=== PATIENT | male | born 1960 | race African-American/Black ===

== ENCOUNTER 2021-08-17 10:14 | Inpatient (IN) ==
[2021-08-17] MEDS ORDERED: LORazepam 1 MG TABLET PO STA (10:59)
[2021-08-17] MEDS ORDERED: ALBUTEROL/IPRATROPIUM 3 ML NEB RESP TX STA (11:00)
[2021-08-17 11:13] LABS: Basophils % 0.1 % (0.0-0.8); Eosinophils % 0.1 % (0.00-10.9); Hematocrit 36.8 VOL% (42.0-52.0); Hemoglobin 11.4 GM/DL (14.0-18.0); Immature Granulocytes % 1.1 %; Immature Granulocytes Absolute 0.17 #; Lymphocytes # 0.6 10*3/uL (1.4-4.0); Lymphocytes % 4.2 % (21.2-54.2); Mean Platelet Volume 9.2 FL (9.6-12.0); Monocytes % 7.4 % (1.7-12.7); Neutrophils % 87.1 % (38.7-73.9); Platelet Count 258 T/CUMM (130-400); Red Blood Count 3.44 MC/CUMM (3.8-5.5); White Blood Count 14.8 T/CUMM (4-12)
[2021-08-17 11:20] LABS: Albumin 3.6 G/DL (3.4-5.0); Calcium 10.3 MG/DL (8.5-10.1); Osmolality,Calculated 289.2 MOS/KG (273-304); Total Protein 8.2 G/DL (6.4-8.2)
[2021-08-17 11:52] LABS: Metamyelocytes 1 %; Segmented Neutrophils 95 % (50-85); Total Cells Counted 100
[2021-08-17] MEDS ORDERED: cefTRIAXone 1,000 MG in SODIUM CHLORIDE 0.9% 100 ML IV STA (12:10)
[2021-08-17] MEDS ORDERED: AZITHROMYCIN 250 MG TABLET PO STA (12:10)
[2021-08-17 15:34] LABS: ABG Base Excess 3.2 MMOL/L (-2.5-2.5); ABG HCO3 29.8 MMOL/L (20-26); ABG Oxygen Saturation 83.2 % (95-100); ABG PCO2 54.7 MM HG (35-48); ABG PH 7.354 (7.35-7.45); ABG PO2 50.1 MM HG (80-95); ABG TCO2 31.5 MMOL/L (23-27)
[2021-08-17] MEDS ORDERED: ALBUTEROL 2.5 MG/3 ML NEB RESP TX PRN (15:44)
[2021-08-17] MEDS ORDERED: ONDANSETRON 4 MG/2 ML VIAL IV PRN (15:46)
[2021-08-17] MEDS: ALBUTEROL/IPRATROPIUM 3 ML NEB RESP TX SCH ×3 (16:30→23:45)
[2021-08-17] MEDS ORDERED: MORPHINE 2 MG/1 ML SYRINGE ONE (16:52)
[2021-08-17] MEDS ORDERED: MORPHINE 2 MG/1 ML SYRINGE IV PRN (16:54)
[2021-08-17] MEDS: methylPREDNISolone SOD SUC 40 MG/1 ML VIAL IV SCH (16:55)
[2021-08-17] MEDS: FAMOTIDINE 20 MG/2 ML VIAL IV SCH (16:55)
[2021-08-17 21:18] LABS: ABG Base Excess 2.8 MMOL/L (-2.5-2.5); ABG Oxygen Saturation 99.1 % (95-100); ABG PCO2 66.7 MM HG (35-48); ABG PH 7.285 (7.35-7.45); ABG PO2 281.4 MM HG (80-95)
[2021-08-17] MEDS: CLORAZEPATE 3.75 MG TABLET PO PRN (21:52)
[2021-08-18] MEDS: methylPREDNISolone SOD SUC 40 MG/1 ML VIAL IV SCH ×3 (01:04→17:15)
[2021-08-18] MEDS ORDERED: LORazepam 2 MG/1 ML VIAL IV ONE (01:23)
[2021-08-18] MEDS: ALBUTEROL/IPRATROPIUM 3 ML NEB RESP TX SCH ×5 (02:25→19:28)
[2021-08-18 04:43] LABS: Basophils % 0.1 % (0.0-0.8); Hematocrit 40.3 VOL% (42.0-52.0); Hemoglobin 12.4 GM/DL (14.0-18.0); Immature Granulocytes Absolute 0.19 #; Lymphocytes # 0.1 10*3/uL (1.4-4.0); Lymphocytes % 0.4 % (21.2-54.2); Mean Corpuscular HGB Conc 30.8 GM/DL (32-36); Mean Platelet Volume 9.2 FL (9.6-12.0); Monocytes % 3.6 % (1.7-12.7); Neutrophils % 94.9 % (38.7-73.9); Platelet Count 245 T/CUMM (130-400); Red Blood Count 3.73 MC/CUMM (3.8-5.5); Red Cell Distribution Width 14.7 % (9.3-17.3); White Blood Count 19.9 T/CUMM (4-12)
[2021-08-18 05:18] LABS: Band Neutrophils 1 % (0-10); Hypochromia 1+; Lymphocytes 1 % (20-55); Segmented Neutrophils 96 % (50-85); Total Cells Counted 100
[2021-08-18 05:19] LABS: Microcytosis 1+; Ovalocytes Slight; Platelet Estimate Normal
[2021-08-18 06:07] LABS: Albumin 3.6 G/DL (3.4-5.0); Bilirubin,Total 1.1 MG/DL (0.20-1.00); Calcium 10.3 MG/DL (8.5-10.1); Osmolality,Calculated 285.4 MOS/KG (273-304); Total Protein 8.2 G/DL (6.4-8.2)
[2021-08-18 06:09] LABS: Potassium 6.2 MMOL/L (3.5-5.1)
[2021-08-18] MEDS ORDERED: FAMOTIDINE 20 MG/2 ML VIAL IV SCH (09:00)
[2021-08-18] MEDS: AZITHROMYCIN INJ 500 MG in SODIUM CHLORIDE 0.9% 250 ML IV SCH (09:40)
[2021-08-18] MEDS: CLORAZEPATE 3.75 MG TABLET PO PRN (09:52)
[2021-08-18 10:06] LABS: Allen Test Positive; Pt O2 Delivery Device BIPAP
[2021-08-18 10:09] LABS: ABG Base Excess 3.6 MMOL/L (-2.5-2.5); ABG HCO3 27.6 MMOL/L (20-26); ABG Oxygen Saturation 97.3 % (95-100); ABG PCO2 65.7 MM HG (35-48); ABG PH 7.298 (7.35-7.45); ABG TCO2 28.9 MMOL/L (23-27)
[2021-08-18] MEDS ORDERED: ROCURONIUM 100 MG/10 ML VIAL IV ONE (10:58)
[2021-08-18] MEDS ORDERED: ETOMIDATE 20 MG/10 ML VIAL IV ONE (10:58)
[2021-08-18 11:43] LABS: ABG Base Excess 2.7 MMOL/L (-2.5-2.5); ABG HCO3 31.1 MMOL/L (20-26); ABG Oxygen Saturation 99.4 % (95-100); ABG PCO2 67.4 MM HG (35-48); ABG PH 7.282 (7.35-7.45); ABG TCO2 33.2 MMOL/L (23-27)
[2021-08-18] MEDS: FERROUS SULFATE 325 MG TABLET PO SCH (13:52)
[2021-08-18] MEDS: METOPROLOL SUCCINATE XL 25 MG TABLET PO SCH (13:52)
[2021-08-18] MEDS: PANTOPRAZOLE 40 MG TABLET PO SCH ×2 (13:52→21:28)
[2021-08-18] MEDS: MONTELUKAST 10 MG TABLET PO SCH ×2 (13:52→21:28)
[2021-08-18] MEDS: FOLIC ACID 1 MG TABLET PO SCH (13:52)
[2021-08-18] MEDS: cefTRIAXone 1,000 MG in SODIUM CHLORIDE 0.9% 100 ML IV SCH (14:00)
[2021-08-18] MEDS ORDERED: FUROSEMIDE 20 MG TABLET PO SCH (15:00)
[2021-08-18] MEDS: MIDAZOLAM 100 MG in SODIUM CHLORIDE 0.9% 80 ML IV PRN (15:00)
[2021-08-18] MEDS ORDERED: MIDAZOLAM 2 MG/2 ML VIAL IV ONE (15:30)
[2021-08-18] MEDS ORDERED: MORPHINE 2 MG/1 ML SYRINGE IV ONE (15:30)
[2021-08-18] MEDS ORDERED: LORazepam 2 MG/1 ML VIAL ONE (16:53)
[2021-08-18] MEDS: DEXMEDETOMIDINE 200 MCG in SODIUM CHLORIDE 0.9% 48 ML IV PRN (17:20)
[2021-08-18] MEDS: FAMOTIDINE 20 MG/2 ML VIAL IV SCH (18:39)
[2021-08-18] MEDS: PHENYLEPHRINE DRIP 40 MG/250 ML PREMIX IV PRN (18:50)
[2021-08-18] MEDS: FUROSEMIDE 40 MG/4 ML VIAL IV SCH (21:28)
[2021-08-18] MEDS: VANCOMYCIN 125 MG CAPSULE PO SCH (21:28)
[2021-08-19] MEDS: ALBUTEROL/IPRATROPIUM 3 ML NEB RESP TX SCH ×7 (00:13→22:45)
[2021-08-19] MEDS: fentaNYL INJ 1,250 MCG in SODIUM CHLORIDE 0.9% 225 ML IV PRN ×5 (00:30→19:55)
[2021-08-19] MEDS: methylPREDNISolone SOD SUC 40 MG/1 ML VIAL IV SCH ×3 (00:43→16:10)
[2021-08-19] MEDS: BUDESONIDE/FORMOTEROL 80-4.5 INHALER 6.9 GM INH SCH ×3 (00:47→22:31)
[2021-08-19 03:05] LABS: Basophils % 0.1 % (0.0-0.8); Hematocrit 32.6 VOL% (42.0-52.0); Hemoglobin 10.2 GM/DL (14.0-18.0); Immature Granulocytes % 0.6 %; Immature Granulocytes Absolute 0.12 #; Lymphocytes # 0.1 10*3/uL (1.4-4.0); Lymphocytes % 0.4 % (21.2-54.2); Mean Corpuscular HGB Conc 31.3 GM/DL (32-36); Mean Corpuscular Volume 106.9 FL (87-102); Mean Platelet Volume 9.1 FL (9.6-12.0); Monocytes % 3.9 % (1.7-12.7); Platelet Count 203 T/CUMM (130-400); Red Blood Count 3.05 MC/CUMM (3.8-5.5); Red Cell Distribution Width 14.8 % (9.3-17.3); White Blood Count 19.8 T/CUMM (4-12)
[2021-08-19] MEDS: PHENYLEPHRINE DRIP 40 MG/250 ML PREMIX IV PRN ×4 (03:15→22:32)
[2021-08-19 03:23] LABS: Albumin 2.6 G/DL (3.4-5.0); Bilirubin,Total 0.8 MG/DL (0.20-1.00); Osmolality,Calculated 297.3 MOS/KG (273-304); Total Protein 6.6 G/DL (6.4-8.2)
[2021-08-19] MEDS: VANCOMYCIN 125 MG CAPSULE PO SCH ×4 (03:30→21:20)
[2021-08-19 03:39] LABS: INR 1.1; PT Patient Result 12.3 SECS (10.5-12.0); Partial Thromboplastin Time 30.5 SECS (23.8-32.1)
[2021-08-19 03:56] LABS: Lymphocytes 1 % (20-55); Platelet Estimate Adequate; Segmented Neutrophils 96 % (50-85); Target Cells 1+; Total Cells Counted 100
[2021-08-19 04:39] LABS: ABG HCO3 31.9 MMOL/L (20-26); ABG Oxygen Saturation 98.6 % (95-100); ABG PH 7.351 (7.35-7.45); ABG PO2 189.3 MM HG (80-95); ABG TCO2 33.7 MMOL/L (23-27)
[2021-08-19] MEDS: MIDAZOLAM 100 MG in SODIUM CHLORIDE 0.9% 80 ML IV PRN ×2 (05:10→20:00)
[2021-08-19] MEDS: FUROSEMIDE 40 MG/4 ML VIAL IV SCH ×3 (08:25→21:26)
[2021-08-19] MEDS: AZITHROMYCIN INJ 500 MG in SODIUM CHLORIDE 0.9% 250 ML IV SCH (08:25)
[2021-08-19] MEDS: FERROUS SULFATE 325 MG TABLET PO SCH (08:45)
[2021-08-19] MEDS: MONTELUKAST 10 MG TABLET PO SCH ×2 (08:45→21:20)
[2021-08-19] MEDS: SIMVASTATIN 10 MG TABLET PO SCH (08:45)
[2021-08-19] MEDS: FOLIC ACID 1 MG TABLET PO SCH (08:45)
[2021-08-19] MEDS: METOPROLOL SUCCINATE XL 25 MG TABLET PO SCH (09:00)
[2021-08-19] MEDS: PANTOPRAZOLE 40 MG TABLET PO SCH ×2 (09:00→21:20)
[2021-08-19 09:44] LABS: % Iron Saturation 15.3 % (18-50)
[2021-08-19] MEDS: cefTRIAXone 1,000 MG in SODIUM CHLORIDE 0.9% 100 ML IV SCH (11:40)
[2021-08-19] MEDS: FERRIC GLUCONATE COMPLEX 125 MG in SODIUM CHLORIDE 0.9% 100 ML IV SCH (12:15)
[2021-08-20] MEDS: methylPREDNISolone SOD SUC 40 MG/1 ML VIAL IV SCH ×3 (00:35→16:10)
[2021-08-20] MEDS: fentaNYL INJ 1,250 MCG in SODIUM CHLORIDE 0.9% 225 ML IV PRN ×4 (01:10→18:30)
[2021-08-20] MEDS: VANCOMYCIN 125 MG CAPSULE PO SCH ×4 (03:25→21:55)
[2021-08-20] MEDS: ALBUTEROL/IPRATROPIUM 3 ML NEB RESP TX SCH ×5 (03:47→18:12)
[2021-08-20 03:50] LABS: ABG Base Excess 5.3 MMOL/L (-2.5-2.5); ABG HCO3 29.2 MMOL/L (20-26); ABG Oxygen Saturation 98.5 % (95-100); ABG PH 7.402 (7.35-7.45); ABG TCO2 28.1 MMOL/L (23-27)
[2021-08-20 04:05] LABS: Hematocrit 32.7 VOL% (42.0-52.0); Lymphocytes # 0.1 10*3/uL (1.4-4.0); Lymphocytes % 0.4 % (21.2-54.2); Mean Corpuscular HGB Conc 30.6 GM/DL (32-36); Mean Corpuscular Volume 106.5 FL (87-102); Mean Platelet Volume 9.3 FL (9.6-12.0); Monocytes % 4.1 % (1.7-12.7); NRBC # 0.09 10*3/uL; Neutrophils % 94.5 % (38.7-73.9); Platelet Count 224 T/CUMM (130-400); Red Blood Count 3.07 MC/CUMM (3.8-5.5); Red Cell Distribution Width 15.1 % (9.3-17.3); White Blood Count 20.7 T/CUMM (4-12)
[2021-08-20 04:21] LABS: Albumin 2.5 G/DL (3.4-5.0); Bilirubin,Total 0.7 MG/DL (0.20-1.00); Calcium 9.6 MG/DL (8.5-10.1); Osmolality,Calculated 297.4 MOS/KG (273-304); Potassium 4.7 MMOL/L (3.5-5.1); Total Protein 6.6 G/DL (6.4-8.2)
[2021-08-20 04:25] LABS: Hypochromia 1+; Lymphocytes 1 % (20-55); Microcytosis 1+; Platelet Estimate Adequate; Segmented Neutrophils 95 % (50-85); Total Cells Counted 100
[2021-08-20] MEDS: PHENYLEPHRINE DRIP 40 MG/250 ML PREMIX IV PRN ×3 (05:56→22:30)
[2021-08-20] MEDS: FUROSEMIDE 40 MG/4 ML VIAL IV SCH ×3 (08:30→21:55)
[2021-08-20] MEDS: cefTRIAXone 1,000 MG in SODIUM CHLORIDE 0.9% 100 ML IV SCH (08:35)
[2021-08-20] MEDS: FERROUS SULFATE 325 MG TABLET PO SCH (08:40)
[2021-08-20] MEDS: FOLIC ACID 1 MG TABLET PO SCH (08:40)
[2021-08-20] MEDS: SIMVASTATIN 10 MG TABLET PO SCH (08:40)
[2021-08-20] MEDS: AZITHROMYCIN INJ 500 MG in SODIUM CHLORIDE 0.9% 250 ML IV SCH (08:45)
[2021-08-20] MEDS: METOPROLOL SUCCINATE XL 25 MG TABLET PO SCH (09:00)
[2021-08-20] MEDS: BUDESONIDE/FORMOTEROL 80-4.5 INHALER 6.9 GM INH SCH ×2 (09:00→21:55)
[2021-08-20] MEDS: PANTOPRAZOLE 40 MG TABLET PO SCH (09:00)
[2021-08-20] MEDS: FERRIC GLUCONATE COMPLEX 125 MG in SODIUM CHLORIDE 0.9% 100 ML IV SCH (09:10)
[2021-08-20] MEDS: PANTOPRAZOLE 40 MG VIAL IV SCH (10:50)
[2021-08-20] MEDS: MONTELUKAST 10 MG TABLET PO SCH ×2 (10:50→21:55)
[2021-08-20] MEDS: MIDAZOLAM 100 MG in SODIUM CHLORIDE 0.9% 80 ML IV PRN (12:05)
[2021-08-21] MEDS: MIDAZOLAM 100 MG in SODIUM CHLORIDE 0.9% 80 ML IV PRN ×2 (00:35→18:30)
[2021-08-21] MEDS: methylPREDNISolone SOD SUC 40 MG/1 ML VIAL IV SCH ×3 (00:42→16:05)
[2021-08-21] MEDS: ALBUTEROL/IPRATROPIUM 3 ML NEB RESP TX SCH ×6 (01:37→18:00)
[2021-08-21] MEDS ORDERED: SODIUM CHLORIDE 0.9% 250 ML IV ONE (02:06)
[2021-08-21] MEDS: fentaNYL INJ 1,250 MCG in SODIUM CHLORIDE 0.9% 225 ML IV PRN ×4 (02:20→18:30)
[2021-08-21] MEDS: VANCOMYCIN 125 MG CAPSULE PO SCH ×4 (02:31→21:50)
[2021-08-21] MEDS: PHENYLEPHRINE DRIP 40 MG/250 ML PREMIX IV PRN ×4 (04:10→19:50)
[2021-08-21 05:32] LABS: Basophils % 0.1 % (0.0-0.8); Hematocrit 34.2 VOL% (42.0-52.0); Hemoglobin 10.7 GM/DL (14.0-18.0); Immature Granulocytes % 1.5 %; Immature Granulocytes Absolute 0.34 #; Mean Corpuscular HGB Conc 31.3 GM/DL (32-36); Mean Corpuscular Volume 105.9 FL (87-102); Mean Platelet Volume 9.6 FL (9.6-12.0); Monocytes % 4.3 % (1.7-12.7); NRBC # 0.18 10*3/uL; Neutrophils % 94.1 % (38.7-73.9); Platelet Count 229 T/CUMM (130-400); Red Blood Count 3.23 MC/CUMM (3.8-5.5); Red Cell Distribution Width 15.4 % (9.3-17.3); White Blood Count 23.3 T/CUMM (4-12)
[2021-08-21 05:49] LABS: Albumin 2.6 G/DL (3.4-5.0); Bilirubin,Total 0.7 MG/DL (0.20-1.00); Calcium 9.6 MG/DL (8.5-10.1); Osmolality,Calculated 301.5 MOS/KG (273-304); Potassium 4.5 MMOL/L (3.5-5.1)
[2021-08-21 05:51] LABS: Hypochromia 1+; Microcytosis 1+; Platelet Estimate Adequate; Segmented Neutrophils 98 % (50-85); Total Cells Counted 100
[2021-08-21 06:29] LABS: ABG Base Excess 3.4 MMOL/L (-2.5-2.5); ABG HCO3 27.4 MMOL/L (20-26); ABG Oxygen Saturation 98.2 % (95-100); ABG PH 7.377 (7.35-7.45); ABG TCO2 26.6 MMOL/L (23-27)
[2021-08-21] MEDS: FERRIC GLUCONATE COMPLEX 125 MG in SODIUM CHLORIDE 0.9% 100 ML IV SCH (08:05)
[2021-08-21] MEDS: PANTOPRAZOLE 40 MG VIAL IV SCH (09:00)
[2021-08-21] MEDS: AZITHROMYCIN INJ 500 MG in SODIUM CHLORIDE 0.9% 250 ML IV SCH (09:00)
[2021-08-21] MEDS: FUROSEMIDE 40 MG/4 ML VIAL IV SCH (09:00)
[2021-08-21] MEDS: BUDESONIDE/FORMOTEROL 80-4.5 INHALER 6.9 GM INH SCH ×2 (09:00→21:50)
[2021-08-21] MEDS: SIMVASTATIN 10 MG TABLET PO SCH (09:05)
[2021-08-21] MEDS: FOLIC ACID 1 MG TABLET PO SCH (09:05)
[2021-08-21] MEDS: FERROUS SULFATE 325 MG TABLET PO SCH (09:05)
[2021-08-21] MEDS: MONTELUKAST 10 MG TABLET PO SCH ×2 (09:05→21:50)
[2021-08-21] MEDS: cefTRIAXone 1,000 MG in SODIUM CHLORIDE 0.9% 100 ML IV SCH (09:30)
[2021-08-22] MEDS: methylPREDNISolone SOD SUC 40 MG/1 ML VIAL IV SCH ×3 (00:02→15:56)
[2021-08-22] MEDS: ALBUTEROL/IPRATROPIUM 3 ML NEB RESP TX SCH ×7 (00:17→23:09)
[2021-08-22] MEDS: PHENYLEPHRINE DRIP 40 MG/250 ML PREMIX IV PRN ×3 (00:56→11:36)
[2021-08-22] MEDS: fentaNYL INJ 1,250 MCG in SODIUM CHLORIDE 0.9% 225 ML IV PRN ×3 (01:07→17:28)
[2021-08-22] MEDS: VANCOMYCIN 125 MG CAPSULE PO SCH ×4 (03:56→21:00)
[2021-08-22 05:21] LABS: Basophils % 0.1 % (0.0-0.8); Hematocrit 36.1 VOL% (42.0-52.0); Immature Granulocytes % 1.1 %; Immature Granulocytes Absolute 0.24 #; Lymphocytes # 0.1 10*3/uL (1.4-4.0); Lymphocytes % 0.2 % (21.2-54.2); Mean Corpuscular HGB Conc 30.5 GM/DL (32-36); Mean Corpuscular Volume 108.1 FL (87-102); Mean Platelet Volume 9.7 FL (9.6-12.0); Monocytes % 5.7 % (1.7-12.7); NRBC # 0.09 10*3/uL; Neutrophils % 92.9 % (38.7-73.9); Platelet Count 209 T/CUMM (130-400); Red Blood Count 3.34 MC/CUMM (3.8-5.5); Red Cell Distribution Width 15.4 % (9.3-17.3); White Blood Count 22.6 T/CUMM (4-12)
[2021-08-22 05:34] LABS: ABG Base Excess 0.8 MMOL/L (-2.5-2.5); ABG HCO3 27.9 MMOL/L (20-26); ABG Oxygen Saturation 97.7 % (95-100); ABG PCO2 57.7 MM HG (35-48); ABG PH 7.302 (7.35-7.45); ABG PO2 118.2 MM HG (80-95); ABG TCO2 29.7 MMOL/L (23-27)
[2021-08-22 05:47] LABS: Hypochromia Slight; Lymphocytes 1 % (20-55); Microcytosis Slight; Nucleated Red Blood Cells 1 (0-5); Platelet Estimate Adequate; Segmented Neutrophils 98 % (50-85); Total Cells Counted 100
[2021-08-22 06:42] LABS: Albumin 2.7 G/DL (3.4-5.0); Bilirubin,Total 0.6 MG/DL (0.20-1.00); Osmolality,Calculated 307.4 MOS/KG (273-304); Potassium 5.2 MMOL/L (3.5-5.1)
[2021-08-22 07:56] LABS: M. Tuberculosis PCR Result Negative (Negative); M. Tuberculosis PCR Source BRONCH WASH
[2021-08-22] MEDS: SIMVASTATIN 10 MG TABLET PO SCH (08:57)
[2021-08-22] MEDS: PANTOPRAZOLE 40 MG VIAL IV SCH (08:57)
[2021-08-22] MEDS: FERROUS SULFATE 325 MG TABLET PO SCH (08:57)
[2021-08-22] MEDS: FOLIC ACID 1 MG TABLET PO SCH (08:57)
[2021-08-22] MEDS: MONTELUKAST 10 MG TABLET PO SCH ×2 (08:57→21:00)
[2021-08-22] MEDS: BUDESONIDE/FORMOTEROL 80-4.5 INHALER 6.9 GM INH SCH ×2 (08:58→21:00)
[2021-08-22] MEDS: FERRIC GLUCONATE COMPLEX 125 MG in SODIUM CHLORIDE 0.9% 100 ML IV SCH (08:58)
[2021-08-22] MEDS: AZITHROMYCIN INJ 500 MG in SODIUM CHLORIDE 0.9% 250 ML IV SCH (08:59)
[2021-08-22] MEDS: cefTRIAXone 1,000 MG in SODIUM CHLORIDE 0.9% 100 ML IV SCH (09:01)
[2021-08-22] MEDS ORDERED: SODIUM POLYSTYRENE SULFATE 15 GM/60 ML BOTTLE PO ONE (10:25)
[2021-08-22] MEDS ORDERED: SODIUM CHLORIDE 0.9% 500 ML IV ONE (11:37)
[2021-08-22] MEDS: MIDAZOLAM 100 MG in SODIUM CHLORIDE 0.9% 80 ML IV PRN (16:08)
[2021-08-22] MEDS: HEPARIN 5,000 UNIT/1 ML VIAL SUBCUT SCH (17:55)
[2021-08-22 19:56] LABS: Calcium 9.5 MG/DL (8.5-10.1); Osmolality,Calculated 305.5 MOS/KG (273-304); Potassium 5.4 MMOL/L (3.5-5.1)
[2021-08-23] MEDS: methylPREDNISolone SOD SUC 40 MG/1 ML VIAL IV SCH ×3 (00:50→16:14)
[2021-08-23] MEDS: fentaNYL INJ 1,250 MCG in SODIUM CHLORIDE 0.9% 225 ML IV PRN ×4 (02:26→19:34)
[2021-08-23] MEDS: VANCOMYCIN 125 MG CAPSULE PO SCH ×4 (02:52→21:55)
[2021-08-23] MEDS: ALBUTEROL/IPRATROPIUM 3 ML NEB RESP TX SCH ×6 (03:15→23:20)
[2021-08-23 03:52] LABS: ABG Base Excess -0.1 MMOL/L (-2.5-2.5); ABG PCO2 56.6 MM HG (35-48); ABG PH 7.297 (7.35-7.45); ABG PO2 125.5 MM HG (80-95); ABG TCO2 28.8 MMOL/L (23-27)
[2021-08-23 03:53] LABS: Allen Test Positive; Pt O2 Delivery Device Ventilator
[2021-08-23 05:50] LABS: Basophils % 0.1 % (0.0-0.8); Eosinophils # 0.1 10*3/uL (0.0-0.87); Eosinophils % 0.2 % (0.00-10.9); Hematocrit 34.1 VOL% (42.0-52.0); Hemoglobin 10.6 GM/DL (14.0-18.0); Immature Granulocytes % 1.2 %; Immature Granulocytes Absolute 0.26 #; Lymphocytes # 0.1 10*3/uL (1.4-4.0); Lymphocytes % 0.4 % (21.2-54.2); Mean Corpuscular HGB Conc 31.1 GM/DL (32-36); Mean Corpuscular Volume 108.3 FL (87-102); Mean Platelet Volume 11.1 FL (9.6-12.0); Monocytes % 4.5 % (1.7-12.7); NRBC # 0.08 10*3/uL; Neutrophils % 93.6 % (38.7-73.9); Red Blood Count 3.15 MC/CUMM (3.8-5.5); Red Cell Distribution Width 15.4 % (9.3-17.3); White Blood Count 21.5 T/CUMM (4-12)
[2021-08-23 05:51] LABS: Calcium 9.5 MG/DL (8.5-10.1); Osmolality,Calculated 312.1 MOS/KG (273-304); Potassium 5.2 MMOL/L (3.5-5.1)
[2021-08-23 05:58] LABS: Platelet Count 111 T/CUMM (130-400)
[2021-08-23] MEDS: HEPARIN 5,000 UNIT/1 ML VIAL SUBCUT SCH ×2 (06:17→18:29)
[2021-08-23 06:19] LABS: Nucleated Red Blood Cells 1 (0-5); Segmented Neutrophils 92 % (50-85); Total Cells Counted 100
[2021-08-23] MEDS ORDERED: SODIUM POLYSTYRENE SULFATE 15 GM/60 ML BOTTLE PO ONE (07:57)
[2021-08-23] MEDS: MIDAZOLAM 100 MG in SODIUM CHLORIDE 0.9% 80 ML IV PRN (09:32)
[2021-08-23] MEDS: BUDESONIDE/FORMOTEROL 80-4.5 INHALER 6.9 GM INH SCH ×2 (09:38→21:55)
[2021-08-23] MEDS: AZITHROMYCIN INJ 500 MG in SODIUM CHLORIDE 0.9% 250 ML IV SCH (09:38)
[2021-08-23] MEDS: MONTELUKAST 10 MG TABLET PO SCH ×2 (09:38→21:55)
[2021-08-23] MEDS: PANTOPRAZOLE 40 MG VIAL IV SCH (09:38)
[2021-08-23] MEDS: FOLIC ACID 1 MG TABLET PO SCH (09:38)
[2021-08-23] MEDS: FERROUS SULFATE 325 MG TABLET PO SCH (09:38)
[2021-08-23] MEDS: SIMVASTATIN 10 MG TABLET PO SCH (09:39)
[2021-08-23] MEDS: cefTRIAXone 1,000 MG in SODIUM CHLORIDE 0.9% 100 ML IV SCH (11:20)
[2021-08-23] MEDS: FERRIC GLUCONATE COMPLEX 125 MG in SODIUM CHLORIDE 0.9% 100 ML IV SCH (11:46)
[2021-08-23 13:17] LABS: Basophils % 0.1 % (0.0-0.8); Hematocrit 33.1 VOL% (42.0-52.0); Hemoglobin 10.2 GM/DL (14.0-18.0); Immature Granulocytes % 0.9 %; Immature Granulocytes Absolute 0.18 #; Mean Corpuscular HGB Conc 30.8 GM/DL (32-36); Monocytes % 5.6 % (1.7-12.7); Neutrophils % 93.4 % (38.7-73.9); Platelet Count 151 T/CUMM (130-400); Red Blood Count 3.01 MC/CUMM (3.8-5.5); Red Cell Distribution Width 15.2 % (9.3-17.3); White Blood Count 20.9 T/CUMM (4-12)
[2021-08-23] MEDS: DEXMEDETOMIDINE 200 MCG in SODIUM CHLORIDE 0.9% 48 ML IV PRN ×3 (13:18→22:14)
[2021-08-23] MEDS ORDERED: SODIUM CHLORIDE 0.9% 1,000 ML IV ONE (13:22)
[2021-08-23 13:49] LABS: Platelet Estimate Adequate
[2021-08-23] MEDS: PHENYLEPHRINE DRIP 40 MG/250 ML PREMIX IV PRN (17:47)
[2021-08-24] MEDS: methylPREDNISolone SOD SUC 40 MG/1 ML VIAL IV SCH ×3 (00:38→16:05)
[2021-08-24] MEDS: fentaNYL INJ 1,250 MCG in SODIUM CHLORIDE 0.9% 225 ML IV PRN ×4 (00:42→20:46)
[2021-08-24] MEDS: DEXMEDETOMIDINE 200 MCG in SODIUM CHLORIDE 0.9% 48 ML IV PRN (00:44)
[2021-08-24] MEDS: ALBUTEROL/IPRATROPIUM 3 ML NEB RESP TX SCH ×6 (03:13→23:35)
[2021-08-24] MEDS ORDERED: DEXMEDETOMIDINE 400 MCG in SODIUM CHLORIDE 0.9% 96 ML IV PRN (04:00)
[2021-08-24] MEDS ORDERED: DEXMEDETOMIDINE 200 MCG in SODIUM CHLORIDE 0.9% 48 ML IV PRN (04:00)
[2021-08-24 04:16] LABS: ABG Base Excess 0.2 MMOL/L (-2.5-2.5); ABG HCO3 24.2 MMOL/L (20-26); ABG Oxygen Saturation 98.2 % (95-100); ABG PCO2 37.1 MM HG (35-48); ABG PH 7.433 (7.35-7.45); ABG PO2 130.4 MM HG (80-95); ABG TCO2 25.4 MMOL/L (23-27); Allen Test Positive; Pt O2 Delivery Device Ventilator
[2021-08-24 05:24] LABS: Basophils % 0.1 % (0.0-0.8); Hematocrit 35.4 VOL% (42.0-52.0); Hemoglobin 11.1 GM/DL (14.0-18.0); Immature Granulocytes Absolute 0.19 #; Lymphocytes # 0.1 10*3/uL (1.4-4.0); Lymphocytes % 0.3 % (21.2-54.2); Mean Corpuscular HGB Conc 31.4 GM/DL (32-36); Mean Corpuscular Volume 105.7 FL (87-102); Mean Platelet Volume 10.2 FL (9.6-12.0); Monocytes % 3.4 % (1.7-12.7); NRBC # 0.08 10*3/uL; Neutrophils % 95.2 % (38.7-73.9); Platelet Count 142 T/CUMM (130-400); Red Blood Count 3.35 MC/CUMM (3.8-5.5); White Blood Count 18.7 T/CUMM (4-12)
[2021-08-24 05:36] LABS: INR 1.1; PT Patient Result 12.2 SECS (10.5-12.0); Partial Thromboplastin Time 31.4 SECS (23.8-32.1)
[2021-08-24] MEDS: HEPARIN 5,000 UNIT/1 ML VIAL SUBCUT SCH ×2 (05:47→16:05)
[2021-08-24 05:49] LABS: Hypochromia 1+; Lymphocytes 1 % (20-55); Myelocytes 1 %; Segmented Neutrophils 95 % (50-85); Total Cells Counted 100
[2021-08-24 05:50] LABS: Microcytosis Slight; Ovalocytes Slight; Platelet Estimate Adequate; Target Cells Slight
[2021-08-24 06:00] LABS: Calcium 9.7 MG/DL (8.5-10.1); Osmolality,Calculated 318.8 MOS/KG (273-304); Potassium 4.5 MMOL/L (3.5-5.1)
[2021-08-24] MEDS: PANTOPRAZOLE 40 MG VIAL IV SCH (08:30)
[2021-08-24] MEDS: AZITHROMYCIN INJ 500 MG in SODIUM CHLORIDE 0.9% 250 ML IV SCH (08:30)
[2021-08-24] MEDS: FERRIC GLUCONATE COMPLEX 125 MG in SODIUM CHLORIDE 0.9% 100 ML IV SCH (08:35)
[2021-08-24] MEDS: BUDESONIDE/FORMOTEROL 80-4.5 INHALER 6.9 GM INH SCH ×2 (09:00→20:45)
[2021-08-24] MEDS: MONTELUKAST 10 MG TABLET PO SCH ×2 (09:05→20:49)
[2021-08-24] MEDS: FERROUS SULFATE 325 MG TABLET PO SCH (09:05)
[2021-08-24] MEDS: FOLIC ACID 1 MG TABLET PO SCH (09:05)
[2021-08-24] MEDS: SIMVASTATIN 10 MG TABLET PO SCH (09:05)
[2021-08-24] MEDS: cefTRIAXone 1,000 MG in SODIUM CHLORIDE 0.9% 100 ML IV SCH (10:35)
[2021-08-24] MEDS ORDERED: ETOMIDATE 20 MG/10 ML VIAL IV ONE ×2 (13:28→13:41)
[2021-08-24] MEDS ORDERED: SUCCINYLCHOLINE 200 MG/10 ML VIAL ONE (13:29)
[2021-08-24] MEDS ORDERED: SUCCINYLCHOLINE 200 MG/10 ML VIAL IV ONE (13:41)
[2021-08-24 16:09] LABS: ABG Base Excess -2.5 MMOL/L (-2.5-2.5); ABG HCO3 24.6 MMOL/L (20-26); ABG Oxygen Saturation 96.4 % (95-100); ABG PCO2 53.2 MM HG (35-48); ABG PH 7.283 (7.35-7.45); ABG PO2 100.4 MM HG (80-95); ABG TCO2 26.2 MMOL/L (23-27)
[2021-08-24 18:21] LABS: ABG Base Excess -2.2 MMOL/L (-2.5-2.5); ABG HCO3 22.6 MMOL/L (20-26); ABG Oxygen Saturation 97.2 % (95-100); ABG PCO2 52.7 MM HG (35-48); ABG PH 7.286 (7.35-7.45); ABG TCO2 22.9 MMOL/L (23-27); Allen Test Positive; Pt O2 Delivery Device Ventilator
[2021-08-25] MEDS: methylPREDNISolone SOD SUC 40 MG/1 ML VIAL IV SCH ×3 (00:05→16:30)
[2021-08-25] MEDS: fentaNYL INJ 1,250 MCG in SODIUM CHLORIDE 0.9% 225 ML IV PRN ×4 (02:07→19:00)
[2021-08-25] MEDS: ALBUTEROL/IPRATROPIUM 3 ML NEB RESP TX SCH ×6 (03:30→23:50)
[2021-08-25 04:18] LABS: ABG Base Excess 0.2 MMOL/L (-2.5-2.5); ABG HCO3 24.6 MMOL/L (20-26); ABG Oxygen Saturation 98.5 % (95-100); ABG PH 7.352 (7.35-7.45); ABG TCO2 23.8 MMOL/L (23-27); Allen Test Positive; Pt O2 Delivery Device Ventilator
[2021-08-25 04:41] LABS: Basophils % 0.1 % (0.0-0.8); Immature Granulocytes % 1.4 %; Immature Granulocytes Absolute 0.29 #; Lymphocytes % 0.1 % (21.2-54.2); Mean Corpuscular HGB Conc 30.3 GM/DL (32-36); Mean Corpuscular Volume 106.8 FL (87-102); Mean Platelet Volume 10.4 FL (9.6-12.0); NRBC # 0.07 10*3/uL; Neutrophils % 94.4 % (38.7-73.9); Platelet Count 145 T/CUMM (130-400); Red Blood Count 3.09 MC/CUMM (3.8-5.5); Red Cell Distribution Width 15.2 % (9.3-17.3); White Blood Count 20.3 T/CUMM (4-12)
[2021-08-25 05:00] LABS: Albumin 2.2 G/DL (3.4-5.0); Bilirubin,Total 0.6 MG/DL (0.20-1.00); Calcium 9.5 MG/DL (8.5-10.1); Osmolality,Calculated 318.1 MOS/KG (273-304); Potassium 4.5 MMOL/L (3.5-5.1); Total Protein 6.1 G/DL (6.4-8.2)
[2021-08-25 05:06] LABS: Lymphocytes 1 % (20-55); Segmented Neutrophils 97 % (50-85); Total Cells Counted 100
[2021-08-25 05:07] LABS: Elliptocytes 1+; Platelet Estimate Adequate; Target Cells 1+
[2021-08-25 05:14] LABS: Ferritin 2247.7 ng/mL (26-388)
[2021-08-25] MEDS: HEPARIN 5,000 UNIT/1 ML VIAL SUBCUT SCH ×2 (05:14→16:31)
[2021-08-25] MEDS: MONTELUKAST 10 MG TABLET PO SCH ×2 (08:22→21:04)
[2021-08-25] MEDS: PANTOPRAZOLE 40 MG VIAL IV SCH (08:22)
[2021-08-25] MEDS: FERROUS SULFATE 325 MG TABLET PO SCH (08:22)
[2021-08-25] MEDS: FOLIC ACID 1 MG TABLET PO SCH (08:23)
[2021-08-25] MEDS: SIMVASTATIN 10 MG TABLET PO SCH (08:23)
[2021-08-25] MEDS: AZITHROMYCIN INJ 500 MG in SODIUM CHLORIDE 0.9% 250 ML IV SCH (08:23)
[2021-08-25] MEDS: FERRIC GLUCONATE COMPLEX 125 MG in SODIUM CHLORIDE 0.9% 100 ML IV SCH (09:00)
[2021-08-25] MEDS: BUDESONIDE/FORMOTEROL 80-4.5 INHALER 6.9 GM INH SCH ×2 (09:04→21:05)
[2021-08-25] MEDS: cefTRIAXone 1,000 MG in SODIUM CHLORIDE 0.9% 100 ML IV SCH (10:04)
[2021-08-25] MEDS: MIDAZOLAM 100 MG in SODIUM CHLORIDE 0.9% 80 ML IV PRN (11:50)
[2021-08-25] MEDS: VANCOMYCIN INJ 1,500 MG in SODIUM CHLORIDE 0.9% 500 ML IV SCH (12:05)
[2021-08-25] MEDS: PHENYLEPHRINE DRIP 40 MG/250 ML PREMIX IV PRN (12:40)
[2021-08-25 15:06] LABS: M. Tuberculosis PCR Result Negative (Negative); M. Tuberculosis PCR Source BRONCH WASH
[2021-08-25] MEDS: QUEtiapine 25 MG TABLET PO SCH (21:05)
[2021-08-26] MEDS: methylPREDNISolone SOD SUC 40 MG/1 ML VIAL IV SCH ×3 (00:11→15:55)
[2021-08-26] MEDS: PHENYLEPHRINE DRIP 40 MG/250 ML PREMIX IV PRN (02:43)
[2021-08-26] MEDS: fentaNYL INJ 1,250 MCG in SODIUM CHLORIDE 0.9% 225 ML IV PRN ×4 (02:45→23:34)
[2021-08-26] MEDS: ALBUTEROL/IPRATROPIUM 3 ML NEB RESP TX SCH ×5 (03:00→20:38)
[2021-08-26 04:55] LABS: Basophils % 0.1 % (0.0-0.8); Hemoglobin 9.7 GM/DL (14.0-18.0); Immature Granulocytes % 2.2 %; Immature Granulocytes Absolute 0.57 #; Lymphocytes # 0.1 10*3/uL (1.4-4.0); Lymphocytes % 0.5 % (21.2-54.2); Mean Corpuscular HGB Conc 31.3 GM/DL (32-36); Mean Corpuscular Volume 106.2 FL (87-102); Mean Platelet Volume 10.9 FL (9.6-12.0); Monocytes % 3.2 % (1.7-12.7); NRBC # 0.13 10*3/uL; Platelet Count 179 T/CUMM (130-400); Red Blood Count 2.92 MC/CUMM (3.8-5.5); Red Cell Distribution Width 15.6 % (9.3-17.3); White Blood Count 26.2 T/CUMM (4-12)
[2021-08-26 05:12] LABS: Albumin 2.1 G/DL (3.4-5.0); Bilirubin,Total 0.5 MG/DL (0.20-1.00); Calcium 9.3 MG/DL (8.5-10.1); Osmolality,Calculated 329.3 MOS/KG (273-304); Potassium 4.7 MMOL/L (3.5-5.1); Total Protein 6.2 G/DL (6.4-8.2)
[2021-08-26] MEDS: HEPARIN 5,000 UNIT/1 ML VIAL SUBCUT SCH ×2 (05:17→16:11)
[2021-08-26 05:22] LABS: ABG Base Excess 1.1 MMOL/L (-2.5-2.5); ABG HCO3 25.4 MMOL/L (20-26); ABG Oxygen Saturation 98.4 % (95-100); ABG PCO2 47.6 MM HG (35-48); ABG PH 7.361 (7.35-7.45); ABG TCO2 24.6 MMOL/L (23-27)
[2021-08-26 05:25] LABS: Band Neutrophils 4 % (0-10); Hypochromia 1+; Lymphocytes 1 % (20-55); Segmented Neutrophils 92 % (50-85); Total Cells Counted 100
[2021-08-26 05:26] LABS: Anisocytosis 1+; Microcytosis 1+; Ovalocytes Slight; Target Cells Slight
[2021-08-26] MEDS: FERRIC GLUCONATE COMPLEX 125 MG in SODIUM CHLORIDE 0.9% 100 ML IV SCH (08:26)
[2021-08-26] MEDS: PANTOPRAZOLE 40 MG VIAL IV SCH (08:49)
[2021-08-26] MEDS: SIMVASTATIN 10 MG TABLET PO SCH (08:50)
[2021-08-26] MEDS: FERROUS SULFATE 325 MG TABLET PO SCH (08:50)
[2021-08-26] MEDS: FOLIC ACID 1 MG TABLET PO SCH (08:50)
[2021-08-26] MEDS: MONTELUKAST 10 MG TABLET PO SCH ×2 (08:50→21:15)
[2021-08-26] MEDS: BUDESONIDE/FORMOTEROL 80-4.5 INHALER 6.9 GM INH SCH ×2 (09:08→21:15)
[2021-08-26] MEDS: cefTRIAXone 1,000 MG in SODIUM CHLORIDE 0.9% 100 ML IV SCH (09:23)
[2021-08-26] MEDS: VANCOMYCIN INJ 1,500 MG in SODIUM CHLORIDE 0.9% 500 ML IV SCH (09:24)
[2021-08-26] MEDS: MIDAZOLAM 100 MG in SODIUM CHLORIDE 0.9% 80 ML IV PRN (10:12)
[2021-08-26] MEDS ORDERED: GLUCAGON 1 MG VIAL IM PRN (18:05)
[2021-08-26] MEDS ORDERED: DEXTROSE 10% 25 GM/250 ML BAG IV PRN (18:16)
[2021-08-26] MEDS: INSULIN LISPRO 100 UNIT/ML SUBCUT SCH (18:34)
[2021-08-26] MEDS: QUEtiapine 25 MG TABLET PO SCH (21:15)
[2021-08-27] MEDS ORDERED: INSULIN LISPRO 100 UNIT/ML SUBCUT SCH
[2021-08-27] MEDS: methylPREDNISolone SOD SUC 40 MG/1 ML VIAL IV SCH ×3 (00:29→17:28)
[2021-08-27] MEDS: INSULIN LISPRO 100 UNIT/ML SUBCUT SCH ×4 (00:30→17:28)
[2021-08-27] MEDS: ALBUTEROL/IPRATROPIUM 3 ML NEB RESP TX SCH ×7 (00:35→23:42)
[2021-08-27] MEDS: fentaNYL INJ 1,250 MCG in SODIUM CHLORIDE 0.9% 225 ML IV PRN ×3 (03:06→21:57)
[2021-08-27 03:58] LABS: ABG Base Excess 0.6 MMOL/L (-2.5-2.5); ABG Oxygen Saturation 98.5 % (95-100); ABG PCO2 50.8 MM HG (35-48); ABG PH 7.334 (7.35-7.45)
[2021-08-27 04:35] LABS: Basophils % 0.2 % (0.0-0.8); Hemoglobin 9.3 GM/DL (14.0-18.0); Immature Granulocytes % 1.8 %; Immature Granulocytes Absolute 0.47 #; Lymphocytes # 0.1 10*3/uL (1.4-4.0); Lymphocytes % 0.5 % (21.2-54.2); Mean Corpuscular Volume 109.5 FL (87-102); Mean Platelet Volume 11.4 FL (9.6-12.0); Monocytes % 3.3 % (1.7-12.7); NRBC # 0.09 10*3/uL; Neutrophils % 94.2 % (38.7-73.9); Platelet Count 157 T/CUMM (130-400); Red Blood Count 2.74 MC/CUMM (3.8-5.5); Red Cell Distribution Width 15.6 % (9.3-17.3); White Blood Count 26.6 T/CUMM (4-12)
[2021-08-27] MEDS: MIDAZOLAM 100 MG in SODIUM CHLORIDE 0.9% 80 ML IV PRN (04:38)
[2021-08-27 04:58] LABS: Band Neutrophils 2 % (0-10); Calcium 10.1 MG/DL (8.5-10.1); Lymphocytes 1 % (20-55); Osmolality,Calculated 332.4 MOS/KG (273-304); Platelet Estimate Normal; Potassium 5.1 MMOL/L (3.5-5.1); Segmented Neutrophils 96 % (50-85); Total Cells Counted 100
[2021-08-27 04:59] LABS: Hypochromia Slight
[2021-08-27] MEDS: HEPARIN 5,000 UNIT/1 ML VIAL SUBCUT SCH ×2 (05:59→17:28)
[2021-08-27] MEDS: PANTOPRAZOLE 40 MG VIAL IV SCH (08:39)
[2021-08-27] MEDS: FOLIC ACID 1 MG TABLET PO SCH (08:40)
[2021-08-27] MEDS: MONTELUKAST 10 MG TABLET PO SCH ×2 (08:40→20:30)
[2021-08-27] MEDS: FERRIC GLUCONATE COMPLEX 125 MG in SODIUM CHLORIDE 0.9% 100 ML IV SCH (08:40)
[2021-08-27] MEDS: FERROUS SULFATE 325 MG TABLET PO SCH (08:40)
[2021-08-27] MEDS: SIMVASTATIN 10 MG TABLET PO SCH (08:40)
[2021-08-27] MEDS: BUDESONIDE/FORMOTEROL 80-4.5 INHALER 6.9 GM INH SCH ×2 (08:56→20:30)
[2021-08-27] MEDS: cefTRIAXone 1,000 MG in SODIUM CHLORIDE 0.9% 100 ML IV SCH (09:02)
[2021-08-27] MEDS: VANCOMYCIN INJ 1,500 MG in SODIUM CHLORIDE 0.9% 500 ML IV SCH (09:43)
[2021-08-27] MEDS: QUEtiapine 25 MG TABLET PO SCH ×2 (10:28→20:30)
[2021-08-27] MEDS ORDERED: ACETYLCYSTEINE 20% 800 MG/4 ML VIAL RESP TX SCH (15:00)
[2021-08-27] MEDS: DORNASE ALFA 2.5 MG/2.5 ML VIAL RESP TX SCH (20:21)
[2021-08-28] MEDS: methylPREDNISolone SOD SUC 40 MG/1 ML VIAL IV SCH ×3 (00:50→16:23)
[2021-08-28] MEDS: INSULIN LISPRO 100 UNIT/ML SUBCUT SCH ×4 (00:50→18:01)
[2021-08-28] MEDS: ALBUTEROL/IPRATROPIUM 3 ML NEB RESP TX SCH ×5 (03:30→20:00)
[2021-08-28 03:48] LABS: ABG Base Excess -0.3 MMOL/L (-2.5-2.5); ABG HCO3 24.2 MMOL/L (20-26); ABG Oxygen Saturation 97.2 % (95-100); ABG PCO2 53.8 MM HG (35-48); ABG PH 7.306 (7.35-7.45); ABG TCO2 24.6 MMOL/L (23-27)
[2021-08-28] MEDS: MIDAZOLAM 100 MG in SODIUM CHLORIDE 0.9% 80 ML IV PRN ×2 (03:52→22:38)
[2021-08-28 03:58] LABS: Basophils # 0.1 10*3/uL (0.0-0.2); Basophils % 0.1 % (0.0-0.8); Hematocrit 33.9 VOL% (42.0-52.0); Hemoglobin 10.1 GM/DL (14.0-18.0); Immature Granulocytes % 1.7 %; Immature Granulocytes Absolute 0.57 #; Lymphocytes # 0.1 10*3/uL (1.4-4.0); Lymphocytes % 0.4 % (21.2-54.2); Mean Corpuscular HGB Conc 29.8 GM/DL (32-36); Mean Corpuscular Volume 109.7 FL (87-102); Mean Platelet Volume 10.9 FL (9.6-12.0); Monocytes % 2.8 % (1.7-12.7); NRBC # 0.08 10*3/uL; Platelet Count 165 T/CUMM (130-400); Red Blood Count 3.09 MC/CUMM (3.8-5.5); Red Cell Distribution Width 15.9 % (9.3-17.3); White Blood Count 33.5 T/CUMM (4-12)
[2021-08-28 05:04] LABS: Band Neutrophils 3 % (0-10); Lymphocytes 1 % (20-55); Nucleated Red Blood Cells 1 (0-5); Segmented Neutrophils 95 % (50-85); Total Cells Counted 100
[2021-08-28 05:05] LABS: Hypochromia Slight; Microcytosis 1+; Ovalocytes Slight; Platelet Estimate Adequate
[2021-08-28] MEDS: HEPARIN 5,000 UNIT/1 ML VIAL SUBCUT SCH ×2 (05:56→16:23)
[2021-08-28] MEDS: DORNASE ALFA 2.5 MG/2.5 ML VIAL RESP TX SCH ×2 (07:20→20:05)
[2021-08-28 07:47] LABS: Albumin 2.4 G/DL (3.4-5.0); Bilirubin,Total 0.5 MG/DL (0.20-1.00); Calcium 10.2 MG/DL (8.5-10.1); Osmolality,Calculated 336.1 MOS/KG (273-304); Total Protein 6.6 G/DL (6.4-8.2)
[2021-08-28] MEDS: QUEtiapine 25 MG TABLET PO SCH ×2 (08:19→20:44)
[2021-08-28] MEDS: FERROUS SULFATE 325 MG TABLET PO SCH (08:19)
[2021-08-28] MEDS: PANTOPRAZOLE 40 MG VIAL IV SCH (08:19)
[2021-08-28] MEDS: FOLIC ACID 1 MG TABLET PO SCH (08:19)
[2021-08-28] MEDS: SIMVASTATIN 10 MG TABLET PO SCH (08:19)
[2021-08-28] MEDS: MONTELUKAST 10 MG TABLET PO SCH ×2 (08:20→20:45)
[2021-08-28] MEDS: cefTRIAXone 1,000 MG in SODIUM CHLORIDE 0.9% 100 ML IV SCH (09:05)
[2021-08-28] MEDS: BUDESONIDE/FORMOTEROL 80-4.5 INHALER 6.9 GM INH SCH ×2 (09:05→20:45)
[2021-08-28] MEDS ORDERED: FUROSEMIDE 40 MG/4 ML VIAL IV ONE (09:39)
[2021-08-28] MEDS: VANCOMYCIN INJ 1,500 MG in SODIUM CHLORIDE 0.9% 500 ML IV SCH (10:41)
[2021-08-28] MEDS: MEROPENEM 500 MG in SODIUM CHLORIDE 0.9% 100 ML IV SCH ×2 (10:46→19:51)
[2021-08-28] MEDS: INSULIN GLARGINE 100 UNIT/ML SUBCUT SCH (11:35)
[2021-08-28 11:42] LABS: Bilirubin,Urine Negative (Negative); Blood, Urine Moderate mg/dL (Negative); Glucose,Urine (UA) Negative (Negative); Ketones,Urine Negative (Negative); Mucus,Urine Occasional /LPF (Occasional); Nitrite,Urine Negative (Negative); Protein,Urine Negative; RBC,Urine 72 /HPF (0-4); Urine Appearance CLOUDY (Clear); Urine Color Yellow (Yellow); Urine Specific Gravity 1.008 (1.001-1.035); Urine Urobilinogen < 2.0 EU/DL (<2.0)
[2021-08-28] MEDS: fentaNYL INJ 1,250 MCG in SODIUM CHLORIDE 0.9% 225 ML IV PRN (19:00)
[2021-08-29] MEDS: ALBUTEROL/IPRATROPIUM 3 ML NEB RESP TX SCH ×7 (00:19→23:06)
[2021-08-29] MEDS: INSULIN LISPRO 100 UNIT/ML SUBCUT SCH ×4 (00:37→17:49)
[2021-08-29] MEDS: methylPREDNISolone SOD SUC 40 MG/1 ML VIAL IV SCH ×3 (00:38→17:27)
[2021-08-29 03:47] LABS: Basophils % 0.1 % (0.0-0.8); Hematocrit 31.8 VOL% (42.0-52.0); Hemoglobin 9.6 GM/DL (14.0-18.0); Immature Granulocytes % 2.8 %; Immature Granulocytes Absolute 0.99 #; Lymphocytes # 0.1 10*3/uL (1.4-4.0); Lymphocytes % 0.2 % (21.2-54.2); Mean Corpuscular HGB Conc 30.2 GM/DL (32-36); Mean Corpuscular Volume 110.8 FL (87-102); Mean Platelet Volume 11.4 FL (9.6-12.0); Monocytes % 3.2 % (1.7-12.7); NRBC # 0.08 10*3/uL; Neutrophils % 93.7 % (38.7-73.9); Platelet Count 160 T/CUMM (130-400); Red Blood Count 2.87 MC/CUMM (3.8-5.5); Red Cell Distribution Width 15.8 % (9.3-17.3); White Blood Count 35.9 T/CUMM (4-12)
[2021-08-29 03:51] LABS: ABG Base Excess 0.9 MMOL/L (-2.5-2.5); ABG HCO3 25.2 MMOL/L (20-26); ABG Oxygen Saturation 98.5 % (95-100); ABG PH 7.338 (7.35-7.45); ABG TCO2 24.1 MMOL/L (23-27)
[2021-08-29] MEDS: MEROPENEM 500 MG in SODIUM CHLORIDE 0.9% 100 ML IV SCH ×3 (03:51→19:46)
[2021-08-29 04:05] LABS: Band Neutrophils 1 % (0-10); Hypochromia 1+; Lymphocytes 2 % (20-55); Microcytosis 1+; Platelet Estimate Adequate; Segmented Neutrophils 94 % (50-85); Total Cells Counted 100
[2021-08-29 04:11] LABS: Albumin 2.3 G/DL (3.4-5.0); Bilirubin,Total 0.5 MG/DL (0.20-1.00); Calcium 10.3 MG/DL (8.5-10.1); Osmolality,Calculated 342.9 MOS/KG (273-304); Total Protein 6.4 G/DL (6.4-8.2)
[2021-08-29] MEDS: HEPARIN 5,000 UNIT/1 ML VIAL SUBCUT SCH ×2 (05:55→17:28)
[2021-08-29] MEDS: fentaNYL INJ 1,250 MCG in SODIUM CHLORIDE 0.9% 225 ML IV PRN ×3 (06:05→21:15)
[2021-08-29] MEDS: DORNASE ALFA 2.5 MG/2.5 ML VIAL RESP TX SCH ×2 (08:18→19:24)
[2021-08-29] MEDS: FERROUS SULFATE 325 MG TABLET PO SCH (08:37)
[2021-08-29] MEDS: FOLIC ACID 1 MG TABLET PO SCH (08:37)
[2021-08-29] MEDS: SIMVASTATIN 10 MG TABLET PO SCH (08:37)
[2021-08-29] MEDS: MONTELUKAST 10 MG TABLET PO SCH ×2 (08:37→21:40)
[2021-08-29] MEDS: QUEtiapine 25 MG TABLET PO SCH ×2 (08:37→21:40)
[2021-08-29] MEDS: PANTOPRAZOLE 40 MG VIAL IV SCH (08:38)
[2021-08-29] MEDS: INSULIN GLARGINE 100 UNIT/ML SUBCUT SCH (08:38)
[2021-08-29] MEDS: BUDESONIDE/FORMOTEROL 80-4.5 INHALER 6.9 GM INH SCH ×2 (08:38→21:40)
[2021-08-29] MEDS: VANCOMYCIN INJ 1,500 MG in SODIUM CHLORIDE 0.9% 500 ML IV SCH (11:02)
[2021-08-29 12:01] LABS: M. Tuberculosis PCR Result Negative (Negative); M. Tuberculosis PCR Source BRONCH WASH
[2021-08-29] MEDS: MIDAZOLAM 100 MG in SODIUM CHLORIDE 0.9% 80 ML IV PRN (12:24)
[2021-08-29] MEDS: GENTAMICIN 0.3% OPH SOLN 5 ML BOTTLE BOTH EYES SCH ×2 (14:58→14:59)
[2021-08-29] MEDS: GENTAMICIN 0.3% OPH OINT 3.5 GM TUBE RIGHT EYE SCH ×2 (16:03→21:40)
[2021-08-29] MEDS: MINERAL OIL/PETROLATUM OPH OINT 3.5 GM TUBE BOTH EYES SCH (21:40)
[2021-08-30] MEDS: INSULIN LISPRO 100 UNIT/ML SUBCUT SCH ×4 (00:13→18:41)
[2021-08-30] MEDS: methylPREDNISolone SOD SUC 40 MG/1 ML VIAL IV SCH ×3 (00:52→17:27)
[2021-08-30] MEDS: MIDAZOLAM 100 MG in SODIUM CHLORIDE 0.9% 80 ML IV PRN (03:08)
[2021-08-30] MEDS: ALBUTEROL/IPRATROPIUM 3 ML NEB RESP TX SCH ×5 (03:30→18:50)
[2021-08-30 04:27] LABS: ABG Base Excess 0.6 MMOL/L (-2.5-2.5); ABG HCO3 26.3 MMOL/L (20-26); ABG PCO2 47.8 MM HG (35-48); ABG PH 7.359 (7.35-7.45); ABG PO2 136.9 MM HG (80-95); ABG TCO2 27.8 MMOL/L (23-27)
[2021-08-30 04:36] LABS: Basophils # 0.1 10*3/uL (0.0-0.2); Basophils % 0.1 % (0.0-0.8); Hematocrit 30.1 VOL% (42.0-52.0); Hemoglobin 9.2 GM/DL (14.0-18.0); Immature Granulocytes % 2.8 %; Immature Granulocytes Absolute 1.03 #; Lymphocytes # 0.1 10*3/uL (1.4-4.0); Lymphocytes % 0.3 % (21.2-54.2); Mean Corpuscular HGB Conc 30.6 GM/DL (32-36); Mean Corpuscular Volume 109.9 FL (87-102); Mean Platelet Volume 11.6 FL (9.6-12.0); Monocytes % 2.6 % (1.7-12.7); NRBC # 0.04 10*3/uL; Neutrophils % 94.2 % (38.7-73.9); Platelet Count 147 T/CUMM (130-400); Red Blood Count 2.74 MC/CUMM (3.8-5.5); Red Cell Distribution Width 15.9 % (9.3-17.3); White Blood Count 36.6 T/CUMM (4-12)
[2021-08-30] MEDS: HEPARIN 5,000 UNIT/1 ML VIAL SUBCUT SCH ×2 (04:45→17:27)
[2021-08-30] MEDS: MEROPENEM 500 MG in SODIUM CHLORIDE 0.9% 100 ML IV SCH ×3 (04:45→19:55)
[2021-08-30 04:54] LABS: Calcium 9.8 MG/DL (8.5-10.1); Osmolality,Calculated 348.6 MOS/KG (273-304); Potassium 5.1 MMOL/L (3.5-5.1)
[2021-08-30 04:58] LABS: Band Neutrophils 2 % (0-10); Hypochromia 1+; Lymphocytes 1 % (20-55); Microcytosis 1+; Platelet Estimate Adequate; Segmented Neutrophils 95 % (50-85); Total Cells Counted 100
[2021-08-30] MEDS: DORNASE ALFA 2.5 MG/2.5 ML VIAL RESP TX SCH ×2 (08:14→21:35)
[2021-08-30] MEDS: PANTOPRAZOLE 40 MG VIAL IV SCH (09:13)
[2021-08-30] MEDS: SIMVASTATIN 10 MG TABLET PO SCH (09:14)
[2021-08-30] MEDS: FOLIC ACID 1 MG TABLET PO SCH (09:14)
[2021-08-30] MEDS: GENTAMICIN 0.3% OPH OINT 3.5 GM TUBE RIGHT EYE SCH ×3 (09:14→21:01)
[2021-08-30] MEDS: FERROUS SULFATE 325 MG TABLET PO SCH (09:14)
[2021-08-30] MEDS: MONTELUKAST 10 MG TABLET PO SCH ×2 (09:14→21:00)
[2021-08-30] MEDS: QUEtiapine 25 MG TABLET PO SCH ×2 (09:14→21:01)
[2021-08-30] MEDS: BUDESONIDE/FORMOTEROL 80-4.5 INHALER 6.9 GM INH SCH ×2 (09:15→21:01)
[2021-08-30] MEDS: INSULIN GLARGINE 100 UNIT/ML SUBCUT SCH (09:15)
[2021-08-30] MEDS: VANCOMYCIN INJ 1,500 MG in SODIUM CHLORIDE 0.9% 500 ML IV SCH (11:49)
[2021-08-30] MEDS: fentaNYL INJ 1,250 MCG in SODIUM CHLORIDE 0.9% 225 ML IV PRN (13:05)
[2021-08-30] MEDS: MINERAL OIL/PETROLATUM OPH OINT 3.5 GM TUBE BOTH EYES SCH (21:01)
[2021-08-31] MEDS: MIDAZOLAM 100 MG in SODIUM CHLORIDE 0.9% 80 ML IV PRN ×2 (00:12→17:37)
[2021-08-31] MEDS: INSULIN LISPRO 100 UNIT/ML SUBCUT SCH ×5 (00:27→23:58)
[2021-08-31] MEDS: methylPREDNISolone SOD SUC 40 MG/1 ML VIAL IV SCH ×4 (00:27→23:58)
[2021-08-31] MEDS: ALBUTEROL/IPRATROPIUM 3 ML NEB RESP TX SCH ×7 (00:45→23:09)
[2021-08-31] MEDS: MEROPENEM 500 MG in SODIUM CHLORIDE 0.9% 100 ML IV SCH (02:51)
[2021-08-31 04:00] LABS: ABG Base Excess -0.8 MMOL/L (-2.5-2.5); ABG HCO3 25.2 MMOL/L (20-26); ABG Oxygen Saturation 98.2 % (95-100); ABG PCO2 47.8 MM HG (35-48); ABG PH 7.339 (7.35-7.45); ABG TCO2 26.6 MMOL/L (23-27)
[2021-08-31 04:45] LABS: Basophils % 0.1 % (0.0-0.8); Hematocrit 29.5 VOL% (42.0-52.0); Hemoglobin 8.9 GM/DL (14.0-18.0); Immature Granulocytes % 3.4 %; Lymphocytes # 0.1 10*3/uL (1.4-4.0); Lymphocytes % 0.3 % (21.2-54.2); Mean Corpuscular HGB Conc 30.2 GM/DL (32-36); Mean Corpuscular Volume 112.2 FL (87-102); Mean Platelet Volume 11.6 FL (9.6-12.0); Monocytes % 2.7 % (1.7-12.7); NRBC # 0.08 10*3/uL; Neutrophils % 93.5 % (38.7-73.9); Platelet Count 147 T/CUMM (130-400); Red Blood Count 2.63 MC/CUMM (3.8-5.5); Red Cell Distribution Width 15.7 % (9.3-17.3); White Blood Count 35.4 T/CUMM (4-12)
[2021-08-31 05:00] LABS: Calcium 10.5 MG/DL (8.5-10.1); Osmolality,Calculated 346.9 MOS/KG (273-304); Potassium 5.3 MMOL/L (3.5-5.1)
[2021-08-31] MEDS: fentaNYL INJ 1,250 MCG in SODIUM CHLORIDE 0.9% 225 ML IV PRN ×2 (05:13→17:38)
[2021-08-31 05:16] LABS: Hypochromia 1+; Lymphocytes 1 % (20-55); Microcytosis 1+; Platelet Estimate Adequate; Segmented Neutrophils 97 % (50-85); Total Cells Counted 100
[2021-08-31] MEDS: HEPARIN 5,000 UNIT/1 ML VIAL SUBCUT SCH ×2 (05:47→16:37)
[2021-08-31] MEDS: DORNASE ALFA 2.5 MG/2.5 ML VIAL RESP TX SCH ×2 (07:15→19:37)
[2021-08-31] MEDS: FOLIC ACID 1 MG TABLET PO SCH (08:10)
[2021-08-31] MEDS: QUEtiapine 25 MG TABLET PO SCH ×2 (08:10→20:54)
[2021-08-31] MEDS: SIMVASTATIN 10 MG TABLET PO SCH (08:10)
[2021-08-31] MEDS: MONTELUKAST 10 MG TABLET PO SCH ×2 (08:10→20:54)
[2021-08-31] MEDS: FERROUS SULFATE 325 MG TABLET PO SCH (08:10)
[2021-08-31] MEDS: PANTOPRAZOLE 40 MG VIAL IV SCH (08:11)
[2021-08-31] MEDS: INSULIN GLARGINE 100 UNIT/ML SUBCUT SCH (08:11)
[2021-08-31] MEDS: GENTAMICIN 0.3% OPH OINT 3.5 GM TUBE RIGHT EYE SCH ×3 (08:15→20:54)
[2021-08-31] MEDS: SODIUM CHLORIDE 0.45% 1,000 ML IV SCH ×2 (08:53→22:13)
[2021-08-31] MEDS: BUDESONIDE/FORMOTEROL 80-4.5 INHALER 6.9 GM INH SCH ×2 (08:53→20:54)
[2021-08-31] MEDS: CEFTAROLINE 400 MG in SODIUM CHLORIDE 0.9% 100 ML IV SCH ×2 (09:10→21:19)
[2021-08-31] MEDS: MINERAL OIL/PETROLATUM OPH OINT 3.5 GM TUBE BOTH EYES SCH (20:54)
[2021-09-01] MEDS: ALBUTEROL/IPRATROPIUM 3 ML NEB RESP TX SCH ×6 (03:27→23:40)
[2021-09-01 05:01] LABS: Allen Test Positive; Pt O2 Delivery Device Ventilator
[2021-09-01 05:04] LABS: ABG Base Excess -0.3 MMOL/L (-2.5-2.5); ABG HCO3 25.4 MMOL/L (20-26); ABG PCO2 46.3 MM HG (35-48); ABG PH 7.357 (7.35-7.45); ABG PO2 140.7 MM HG (80-95); ABG TCO2 26.8 MMOL/L (23-27)
[2021-09-01] MEDS: INSULIN LISPRO 100 UNIT/ML SUBCUT SCH ×4 (05:27→23:55)
[2021-09-01] MEDS: HEPARIN 5,000 UNIT/1 ML VIAL SUBCUT SCH ×2 (05:35→16:09)
[2021-09-01 06:39] LABS: Basophils % 0.1 % (0.0-0.8); Hemoglobin 8.7 GM/DL (14.0-18.0); Immature Granulocytes % 2.2 %; Immature Granulocytes Absolute 0.79 #; Lymphocytes # 0.1 10*3/uL (1.4-4.0); Lymphocytes % 0.1 % (21.2-54.2); Mean Corpuscular Volume 110.7 FL (87-102); Mean Platelet Volume 11.9 FL (9.6-12.0); NRBC # 0.09 10*3/uL; Neutrophils % 95.6 % (38.7-73.9); Platelet Count 133 T/CUMM (130-400); Red Blood Count 2.62 MC/CUMM (3.8-5.5); Red Cell Distribution Width 15.6 % (9.3-17.3); White Blood Count 36.1 T/CUMM (4-12)
[2021-09-01 06:57] LABS: Potassium 5.4 MMOL/L (3.5-5.1)
[2021-09-01] MEDS: DORNASE ALFA 2.5 MG/2.5 ML VIAL RESP TX SCH ×2 (07:06→20:24)
[2021-09-01 07:08] LABS: Band Neutrophils 1 % (0-10); Hypochromia 1+; Microcytosis 1+; Nucleated Red Blood Cells 1 (0-5); Platelet Estimate Normal; Segmented Neutrophils 99 % (50-85); Total Cells Counted 100
[2021-09-01] MEDS: SIMVASTATIN 10 MG TABLET PO SCH (08:29)
[2021-09-01] MEDS: QUEtiapine 25 MG TABLET PO SCH ×2 (08:29→20:04)
[2021-09-01] MEDS: FOLIC ACID 1 MG TABLET PO SCH (08:29)
[2021-09-01] MEDS: FERROUS SULFATE 325 MG TABLET PO SCH (08:29)
[2021-09-01] MEDS: PANTOPRAZOLE 40 MG VIAL IV SCH (08:29)
[2021-09-01] MEDS: MONTELUKAST 10 MG TABLET PO SCH ×2 (08:29→20:05)
[2021-09-01] MEDS: methylPREDNISolone SOD SUC 40 MG/1 ML VIAL IV SCH ×3 (08:30→23:55)
[2021-09-01] MEDS: GENTAMICIN 0.3% OPH OINT 3.5 GM TUBE RIGHT EYE SCH ×3 (08:31→20:04)
[2021-09-01] MEDS: BUDESONIDE/FORMOTEROL 80-4.5 INHALER 6.9 GM INH SCH ×2 (08:31→20:05)
[2021-09-01] MEDS: INSULIN GLARGINE 100 UNIT/ML SUBCUT SCH (08:31)
[2021-09-01] MEDS: CEFTAROLINE 400 MG in SODIUM CHLORIDE 0.9% 100 ML IV SCH ×2 (09:01→21:09)
[2021-09-01] MEDS: SODIUM CHLORIDE 0.45% 1,000 ML IV SCH (09:15)
[2021-09-01] MEDS: fentaNYL INJ 1,250 MCG in SODIUM CHLORIDE 0.9% 225 ML IV PRN (09:16)
[2021-09-01] MEDS ORDERED: ALBUMIN 5% 25 GM/500 ML VIAL IV SCH (10:00)
[2021-09-01] MEDS: DEXTROSE 5% 1,000 ML IV SCH (10:12)
[2021-09-01] MEDS: ALBUMIN 25% 25 GM/100 ML VIAL IV SCH ×2 (10:23→17:53)
[2021-09-01] MEDS: FUROSEMIDE 20 MG/2 ML VIAL IV SCH ×2 (11:26→20:04)
[2021-09-01] MEDS: MIDAZOLAM 100 MG in SODIUM CHLORIDE 0.9% 80 ML IV PRN (15:26)
[2021-09-01] MEDS: MINERAL OIL/PETROLATUM OPH OINT 3.5 GM TUBE BOTH EYES SCH (20:04)
[2021-09-02] MEDS: fentaNYL INJ 1,250 MCG in SODIUM CHLORIDE 0.9% 225 ML IV PRN (01:29)
[2021-09-02] MEDS: DEXTROSE 5% 1,000 ML IV SCH ×2 (01:46→16:00)
[2021-09-02] MEDS: ALBUMIN 25% 25 GM/100 ML VIAL IV SCH (02:02)
[2021-09-02] MEDS: FUROSEMIDE 20 MG/2 ML VIAL IV SCH (03:05)
[2021-09-02] MEDS: ALBUTEROL/IPRATROPIUM 3 ML NEB RESP TX SCH ×6 (03:28→23:50)
[2021-09-02 04:03] LABS: Calcium 9.6 MG/DL (8.5-10.1); Osmolality,Calculated 340.7 MOS/KG (273-304)
[2021-09-02 04:16] LABS: Potassium 6.3 MMOL/L (3.5-5.1)
[2021-09-02] MEDS ORDERED: SODIUM POLYSTYRENE SULFATE 15 GM/60 ML BOTTLE PO ONE (04:18)
[2021-09-02] MEDS: HEPARIN 5,000 UNIT/1 ML VIAL SUBCUT SCH ×2 (04:39→16:30)
[2021-09-02 04:49] LABS: ABG Base Excess -2.9 MMOL/L (-2.5-2.5); ABG HCO3 23.2 MMOL/L (20-26); ABG PH 7.312 (7.35-7.45); ABG PO2 129.2 MM HG (80-95); ABG TCO2 24.7 MMOL/L (23-27)
[2021-09-02] MEDS: INSULIN LISPRO 100 UNIT/ML SUBCUT SCH ×3 (05:32→18:11)
[2021-09-02] MEDS: DORNASE ALFA 2.5 MG/2.5 ML VIAL RESP TX SCH ×2 (06:50→18:39)
[2021-09-02 08:11] LABS: Basophils % 0.1 % (0.0-0.8); Hematocrit 26.8 VOL% (42.0-52.0); Hemoglobin 8.2 GM/DL (14.0-18.0); Immature Granulocytes % 1.8 %; Immature Granulocytes Absolute 0.61 #; Lymphocytes # 0.1 10*3/uL (1.4-4.0); Lymphocytes % 0.2 % (21.2-54.2); Mean Corpuscular HGB Conc 30.6 GM/DL (32-36); Mean Corpuscular Volume 111.7 FL (87-102); Mean Platelet Volume 11.6 FL (9.6-12.0); Monocytes % 1.6 % (1.7-12.7); NRBC # 0.13 10*3/uL; Neutrophils % 96.3 % (38.7-73.9); Platelet Count 123 T/CUMM (130-400); Red Cell Distribution Width 15.6 % (9.3-17.3); White Blood Count 34.6 T/CUMM (4-12)
[2021-09-02 08:31] LABS: Macrocytosis Slight; Nucleated Red Blood Cells 1 (0-5); Platelet Estimate Adequate; Polychromasia Slight; Segmented Neutrophils 100 % (50-85); Total Cells Counted 100
[2021-09-02] MEDS ORDERED: INSULIN GLARGINE 100 UNIT/ML SUBCUT SCH (09:00)
[2021-09-02] MEDS: SIMVASTATIN 10 MG TABLET PO SCH (09:30)
[2021-09-02] MEDS: INSULIN GLARGINE 100 UNIT/ML SUBCUT SCH (09:30)
[2021-09-02] MEDS: FOLIC ACID 1 MG TABLET PO SCH (09:30)
[2021-09-02] MEDS: BUDESONIDE/FORMOTEROL 80-4.5 INHALER 6.9 GM INH SCH ×2 (09:30→20:18)
[2021-09-02] MEDS: GENTAMICIN 0.3% OPH OINT 3.5 GM TUBE RIGHT EYE SCH ×3 (09:30→20:18)
[2021-09-02] MEDS: MONTELUKAST 10 MG TABLET PO SCH ×2 (09:30→20:17)
[2021-09-02] MEDS: CEFTAROLINE 400 MG in SODIUM CHLORIDE 0.9% 100 ML IV SCH ×2 (09:30→21:36)
[2021-09-02] MEDS: QUEtiapine 25 MG TABLET PO SCH ×2 (09:30→20:18)
[2021-09-02] MEDS: PANTOPRAZOLE 40 MG VIAL IV SCH (09:30)
[2021-09-02] MEDS: methylPREDNISolone SOD SUC 40 MG/1 ML VIAL IV SCH ×2 (09:30→16:30)
[2021-09-02] MEDS: FERROUS SULFATE 325 MG TABLET PO SCH (09:30)
[2021-09-02] MEDS ORDERED: fentaNYL INJ 2,500 MCG in SODIUM CHLORIDE 0.9% 200 ML IV PRN (14:00)
[2021-09-02] MEDS: MIDAZOLAM 100 MG in SODIUM CHLORIDE 0.9% 80 ML IV PRN (16:00)
[2021-09-02] MEDS: MINERAL OIL/PETROLATUM OPH OINT 3.5 GM TUBE BOTH EYES SCH (20:18)
[2021-09-03] MEDS: methylPREDNISolone SOD SUC 40 MG/1 ML VIAL IV SCH ×4 (00:03→23:57)
[2021-09-03] MEDS: INSULIN LISPRO 100 UNIT/ML SUBCUT SCH ×5 (00:03→23:21)
[2021-09-03 03:41] LABS: ABG Base Excess -1.6 MMOL/L (-2.5-2.5); ABG Oxygen Saturation 98.2 % (95-100); ABG PCO2 50.7 MM HG (35-48); ABG PH 7.301 (7.35-7.45); ABG TCO2 23.5 MMOL/L (23-27); Allen Test Positive; Pt O2 Delivery Device Ventilator
[2021-09-03] MEDS: ALBUTEROL/IPRATROPIUM 3 ML NEB RESP TX SCH ×5 (03:57→19:46)
[2021-09-03 04:05] LABS: Basophils % 0.1 % (0.0-0.8); Hematocrit 27.2 VOL% (42.0-52.0); Hemoglobin 8.2 GM/DL (14.0-18.0); Immature Granulocytes % 1.2 %; Lymphocytes % 0.1 % (21.2-54.2); Mean Corpuscular HGB Conc 30.1 GM/DL (32-36); Mean Corpuscular Volume 111.9 FL (87-102); Mean Platelet Volume 12.1 FL (9.6-12.0); Monocytes % 1.2 % (1.7-12.7); NRBC # 0.14 10*3/uL; Neutrophils % 97.4 % (38.7-73.9); Platelet Count 120 T/CUMM (130-400); Red Blood Count 2.43 MC/CUMM (3.8-5.5)
[2021-09-03 04:27] LABS: Calcium 9.7 MG/DL (8.5-10.1); Osmolality,Calculated 345.3 MOS/KG (273-304); Potassium 4.7 MMOL/L (3.5-5.1)
[2021-09-03 04:37] LABS: Band Neutrophils 3 % (0-10); Hypochromia Slight; Lymphocytes 2 % (20-55); Nucleated Red Blood Cells 1 (0-5); Platelet Estimate Normal; Segmented Neutrophils 93 % (50-85); Total Cells Counted 100
[2021-09-03] MEDS: DEXTROSE 5% 1,000 ML IV SCH ×2 (05:39→18:10)
[2021-09-03] MEDS: HEPARIN 5,000 UNIT/1 ML VIAL SUBCUT SCH ×2 (05:48→18:10)
[2021-09-03] MEDS: DORNASE ALFA 2.5 MG/2.5 ML VIAL RESP TX SCH ×2 (07:58→19:46)
[2021-09-03] MEDS: PANTOPRAZOLE 40 MG VIAL IV SCH (11:00)
[2021-09-03] MEDS: CEFTAROLINE 400 MG in SODIUM CHLORIDE 0.9% 100 ML IV SCH ×2 (11:00→21:01)
[2021-09-03] MEDS: QUEtiapine 25 MG TABLET PO SCH ×2 (11:00→20:49)
[2021-09-03] MEDS: MONTELUKAST 10 MG TABLET PO SCH ×2 (11:00→21:01)
[2021-09-03] MEDS: GENTAMICIN 0.3% OPH OINT 3.5 GM TUBE RIGHT EYE SCH ×3 (11:00→20:49)
[2021-09-03] MEDS: INSULIN GLARGINE 100 UNIT/ML SUBCUT SCH (11:00)
[2021-09-03] MEDS: SIMVASTATIN 10 MG TABLET PO SCH (11:00)
[2021-09-03] MEDS: FERROUS SULFATE 325 MG TABLET PO SCH (11:00)
[2021-09-03] MEDS: FOLIC ACID 1 MG TABLET PO SCH (11:00)
[2021-09-03] MEDS: BUDESONIDE/FORMOTEROL 80-4.5 INHALER 6.9 GM INH SCH ×2 (11:00→20:50)
[2021-09-03] MEDS: MIDAZOLAM 100 MG in SODIUM CHLORIDE 0.9% 80 ML IV PRN (13:30)
[2021-09-03] MEDS: MINERAL OIL/PETROLATUM OPH OINT 3.5 GM TUBE BOTH EYES SCH (20:49)
[2021-09-04] MEDS: ALBUTEROL/IPRATROPIUM 3 ML NEB RESP TX SCH ×6 (00:30→20:33)
[2021-09-04] MEDS: fentaNYL INJ 2,500 MCG in SODIUM CHLORIDE 0.9% 200 ML IV PRN ×2 (02:48→17:15)
[2021-09-04 04:24] LABS: Basophils % 0.1 % (0.0-0.8); Hematocrit 25.6 VOL% (42.0-52.0); Hemoglobin 7.8 GM/DL (14.0-18.0); Immature Granulocytes % 1.4 %; Immature Granulocytes Absolute 0.45 #; Lymphocytes # 0.1 10*3/uL (1.4-4.0); Lymphocytes % 0.2 % (21.2-54.2); Mean Corpuscular HGB Conc 30.5 GM/DL (32-36); Mean Corpuscular Volume 109.9 FL (87-102); Mean Platelet Volume 12.3 FL (9.6-12.0); Monocytes % 1.3 % (1.7-12.7); NRBC # 0.19 10*3/uL; Platelet Count 108 T/CUMM (130-400); Red Blood Count 2.33 MC/CUMM (3.8-5.5); Red Cell Distribution Width 16.1 % (9.3-17.3); White Blood Count 32.2 T/CUMM (4-12)
[2021-09-04 04:31] LABS: Allen Test Positive; Pt O2 Delivery Device Ventilator
[2021-09-04 04:32] LABS: ABG Base Excess -2.1 MMOL/L (-2.5-2.5); ABG Oxygen Saturation 97.2 % (95-100); ABG PCO2 47.7 MM HG (35-48); ABG PO2 110.9 MM HG (80-95); ABG TCO2 25.5 MMOL/L (23-27)
[2021-09-04 04:37] LABS: Calcium 9.4 MG/DL (8.5-10.1); Osmolality,Calculated 351.1 MOS/KG (273-304); Potassium 4.6 MMOL/L (3.5-5.1)
[2021-09-04 05:02] LABS: Anisocytosis 1+; Band Neutrophils 3 % (0-10); Hypochromia Slight; Lymphocytes 1 % (20-55); Microcytosis 1+; Nucleated Red Blood Cells 2 (0-5); Segmented Neutrophils 95 % (50-85); Target Cells Slight; Total Cells Counted 100
[2021-09-04 05:03] LABS: Burr Cells Slight; Ovalocytes Slight
[2021-09-04 05:04] LABS: Platelet Estimate Decreased; Polychromasia Slight
[2021-09-04] MEDS: INSULIN LISPRO 100 UNIT/ML SUBCUT SCH ×4 (06:12→23:53)
[2021-09-04] MEDS: HEPARIN 5,000 UNIT/1 ML VIAL SUBCUT SCH ×2 (06:12→17:19)
[2021-09-04] MEDS: DORNASE ALFA 2.5 MG/2.5 ML VIAL RESP TX SCH ×2 (07:20→20:33)
[2021-09-04] MEDS: methylPREDNISolone SOD SUC 40 MG/1 ML VIAL IV SCH ×3 (09:00→23:53)
[2021-09-04] MEDS: FOLIC ACID 1 MG TABLET PO SCH (09:27)
[2021-09-04] MEDS: FERROUS SULFATE 325 MG TABLET PO SCH (09:27)
[2021-09-04] MEDS: INSULIN GLARGINE 100 UNIT/ML SUBCUT SCH (09:28)
[2021-09-04] MEDS: PANTOPRAZOLE 40 MG VIAL IV SCH (09:28)
[2021-09-04] MEDS: GENTAMICIN 0.3% OPH OINT 3.5 GM TUBE RIGHT EYE SCH ×3 (09:28→20:41)
[2021-09-04] MEDS: MONTELUKAST 10 MG TABLET PO SCH ×2 (09:28→20:41)
[2021-09-04] MEDS: SIMVASTATIN 10 MG TABLET PO SCH (09:29)
[2021-09-04] MEDS: CEFTAROLINE 400 MG in SODIUM CHLORIDE 0.9% 100 ML IV SCH ×2 (09:29→21:38)
[2021-09-04] MEDS: BUDESONIDE/FORMOTEROL 80-4.5 INHALER 6.9 GM INH SCH ×2 (09:29→20:41)
[2021-09-04] MEDS: MINERAL OIL/PETROLATUM OPH OINT 3.5 GM TUBE BOTH EYES SCH (20:41)
[2021-09-05] MEDS: MIDAZOLAM 100 MG in SODIUM CHLORIDE 0.9% 80 ML IV PRN (00:10)
[2021-09-05] MEDS: ALBUTEROL/IPRATROPIUM 3 ML NEB RESP TX SCH ×7 (01:18→23:01)
[2021-09-05 02:41] LABS: ABG Base Excess -3.6 MMOL/L (-2.5-2.5); ABG HCO3 20.9 MMOL/L (20-26); ABG Oxygen Saturation 63.3 % (95-100); ABG PCO2 64.8 MM HG (35-48); ABG PO2 42.5 MM HG (80-95); ABG TCO2 24.2 MMOL/L (23-27)
[2021-09-05 02:44] LABS: ABG PH 7.198 (7.35-7.45)
[2021-09-05 03:36] LABS: ABG Base Excess -3.6 MMOL/L (-2.5-2.5); ABG HCO3 21.4 MMOL/L (20-26); ABG Oxygen Saturation 97.3 % (95-100); ABG PCO2 54.1 MM HG (35-48); ABG PH 7.253 (7.35-7.45); ABG TCO2 22.6 MMOL/L (23-27)
[2021-09-05 04:14] LABS: Basophils % 0.1 % (0.0-0.8); Hematocrit 26.3 VOL% (42.0-52.0); Hemoglobin 8.1 GM/DL (14.0-18.0); Immature Granulocytes % 1.8 %; Immature Granulocytes Absolute 0.57 #; Lymphocytes # 0.1 10*3/uL (1.4-4.0); Lymphocytes % 0.2 % (21.2-54.2); Mean Corpuscular HGB Conc 30.8 GM/DL (32-36); Monocytes % 1.4 % (1.7-12.7); NRBC # 0.18 10*3/uL; Neutrophils % 96.5 % (38.7-73.9); Platelet Count 122 T/CUMM (130-400); Red Blood Count 2.37 MC/CUMM (3.8-5.5); Red Cell Distribution Width 16.6 % (9.3-17.3)
[2021-09-05 04:32] LABS: Calcium 10.1 MG/DL (8.5-10.1); Osmolality,Calculated 339.3 MOS/KG (273-304); Potassium 5.6 MMOL/L (3.5-5.1)
[2021-09-05 04:36] LABS: Lymphocytes 1 % (20-55); Platelet Estimate Normal; Segmented Neutrophils 97 % (50-85); Total Cells Counted 100
[2021-09-05 04:37] LABS: Hypochromia 1+; Microcytosis 1+
[2021-09-05] MEDS: HEPARIN 5,000 UNIT/1 ML VIAL SUBCUT SCH (05:59)
[2021-09-05] MEDS: INSULIN LISPRO 100 UNIT/ML SUBCUT SCH ×3 (06:06→17:57)
[2021-09-05] MEDS: DORNASE ALFA 2.5 MG/2.5 ML VIAL RESP TX SCH ×2 (07:53→20:26)
[2021-09-05] MEDS: fentaNYL INJ 2,500 MCG in SODIUM CHLORIDE 0.9% 200 ML IV PRN ×2 (08:15→19:43)
[2021-09-05] MEDS: MONTELUKAST 10 MG TABLET PO SCH ×2 (09:45→22:14)
[2021-09-05] MEDS: SIMVASTATIN 10 MG TABLET PO SCH (09:45)
[2021-09-05] MEDS: FERROUS SULFATE 325 MG TABLET PO SCH (09:45)
[2021-09-05] MEDS: FOLIC ACID 1 MG TABLET PO SCH (09:45)
[2021-09-05] MEDS: PANTOPRAZOLE 40 MG VIAL IV SCH (09:46)
[2021-09-05] MEDS: methylPREDNISolone SOD SUC 40 MG/1 ML VIAL IV SCH ×2 (09:46→16:43)
[2021-09-05] MEDS: GENTAMICIN 0.3% OPH OINT 3.5 GM TUBE RIGHT EYE SCH ×3 (09:47→22:14)
[2021-09-05] MEDS: INSULIN GLARGINE 100 UNIT/ML SUBCUT SCH (09:47)
[2021-09-05] MEDS: BUDESONIDE/FORMOTEROL 80-4.5 INHALER 6.9 GM INH SCH ×2 (09:49→22:15)
[2021-09-05] MEDS ORDERED: SODIUM CHLORIDE 0.9% 500 ML IV ONE (10:46)
[2021-09-05] MEDS ORDERED: SODIUM CHLORIDE 0.9% 1,000 ML IV ONE (11:00)
[2021-09-05] MEDS: CEFTAROLINE 400 MG in SODIUM CHLORIDE 0.9% 100 ML IV SCH (11:50)
[2021-09-05] MEDS: CEFTAROLINE 200 MG in SODIUM CHLORIDE 0.9% 100 ML IV SCH ×2 (13:37→23:10)
[2021-09-05] MEDS: MINERAL OIL/PETROLATUM OPH OINT 3.5 GM TUBE BOTH EYES SCH (22:14)
[2021-09-05] MEDS: FAMOTIDINE 20 MG/2 ML VIAL IV SCH (22:17)
[2021-09-06] MEDS: methylPREDNISolone SOD SUC 40 MG/1 ML VIAL IV SCH ×3 (00:31→15:38)
[2021-09-06] MEDS: INSULIN LISPRO 100 UNIT/ML SUBCUT SCH ×4 (00:32→17:49)
[2021-09-06] MEDS: ALBUTEROL/IPRATROPIUM 3 ML NEB RESP TX SCH ×6 (03:48→23:25)
[2021-09-06 04:25] LABS: Basophils % 0.1 % (0.0-0.8); Hematocrit 27.7 VOL% (42.0-52.0); Hemoglobin 8.2 GM/DL (14.0-18.0); Immature Granulocytes % 1.6 %; Immature Granulocytes Absolute 0.47 #; Lymphocytes # 0.1 10*3/uL (1.4-4.0); Lymphocytes % 0.3 % (21.2-54.2); Mean Corpuscular HGB Conc 29.6 GM/DL (32-36); Mean Corpuscular Volume 111.7 FL (87-102); Mean Platelet Volume 12.6 FL (9.6-12.0); Monocytes % 1.5 % (1.7-12.7); NRBC # 0.48 10*3/uL; Neutrophils % 96.5 % (38.7-73.9); Platelet Count 129 T/CUMM (130-400); Red Blood Count 2.48 MC/CUMM (3.8-5.5); Red Cell Distribution Width 16.6 % (9.3-17.3); White Blood Count 28.9 T/CUMM (4-12)
[2021-09-06 04:30] LABS: Calcium 10.1 MG/DL (8.5-10.1); Osmolality,Calculated 343.8 MOS/KG (273-304); Potassium 5.1 MMOL/L (3.5-5.1)
[2021-09-06 04:44] LABS: Hypochromia Slight; Lymphocytes 1 % (20-55); Microcytosis Slight; Platelet Estimate Normal; Segmented Neutrophils 98 % (50-85); Total Cells Counted 100
[2021-09-06 04:55] LABS: ABG Base Excess -3.9 MMOL/L (-2.5-2.5); ABG HCO3 21.1 MMOL/L (20-26); ABG Oxygen Saturation 97.2 % (95-100); ABG PCO2 44.5 MM HG (35-48); ABG PH 7.308 (7.35-7.45); ABG TCO2 20.5 MMOL/L (23-27); Allen Test Positive; Pt O2 Delivery Device Ventilator
[2021-09-06] MEDS ORDERED: LIDOCAINE 1%/EPI INJ 20 ML VIAL ONE (06:27)
[2021-09-06] MEDS: DORNASE ALFA 2.5 MG/2.5 ML VIAL RESP TX SCH ×2 (08:04→19:47)
[2021-09-06] MEDS: BUDESONIDE/FORMOTEROL 80-4.5 INHALER 6.9 GM INH SCH (08:36)
[2021-09-06] MEDS: GENTAMICIN 0.3% OPH OINT 3.5 GM TUBE RIGHT EYE SCH ×3 (08:36→21:44)
[2021-09-06] MEDS: FAMOTIDINE 20 MG/2 ML VIAL IV SCH ×2 (08:41→21:48)
[2021-09-06] MEDS: ALBUMIN 25% 25 GM/100 ML VIAL IV SCH ×2 (10:33→17:35)
[2021-09-06] MEDS: CEFTAROLINE 200 MG in SODIUM CHLORIDE 0.9% 100 ML IV SCH (10:36)
[2021-09-06] MEDS: fentaNYL INJ 2,500 MCG in SODIUM CHLORIDE 0.9% 200 ML IV PRN (11:23)
[2021-09-06] MEDS: FUROSEMIDE 40 MG/4 ML VIAL IV SCH ×2 (11:23→18:35)
[2021-09-06] MEDS ORDERED: fentaNYL 100 MCG/2 ML VIAL ONE (11:57)
[2021-09-06] MEDS ORDERED: MIDAZOLAM 2 MG/2 ML VIAL ONE (11:57)
[2021-09-06] MEDS ORDERED: PHENYLEPHRINE 1 MG/10 ML SYRINGE IV ONE (12:40)
[2021-09-06] MEDS ORDERED: ROCURONIUM 50 MG/5 ML VIAL IV ONE (12:40)
[2021-09-06] MEDS ORDERED: SEVOFLURANE 1 UNIT/15 MINUTE INH ONE (13:01)
[2021-09-06] MEDS ORDERED: SODIUM CHLORIDE 0.9% 1,000 ML IV ONE (13:01)
[2021-09-06] MEDS: INSULIN GLARGINE 100 UNIT/ML SUBCUT SCH (14:20)
[2021-09-06] MEDS: SIMVASTATIN 10 MG TABLET PO SCH (15:14)
[2021-09-06] MEDS: FOLIC ACID 1 MG TABLET PO SCH (15:14)
[2021-09-06] MEDS: MONTELUKAST 10 MG TABLET PO SCH ×2 (15:14→21:44)
[2021-09-06] MEDS: FERROUS SULFATE 325 MG TABLET PO SCH (15:14)
[2021-09-06] MEDS: MINERAL OIL/PETROLATUM OPH OINT 3.5 GM TUBE BOTH EYES SCH (21:44)
[2021-09-07] MEDS: methylPREDNISolone SOD SUC 40 MG/1 ML VIAL IV SCH ×3 (00:13→16:21)
[2021-09-07] MEDS: CEFTAROLINE 200 MG in SODIUM CHLORIDE 0.9% 100 ML IV SCH ×3 (00:13→23:00)
[2021-09-07] MEDS: INSULIN LISPRO 100 UNIT/ML SUBCUT SCH ×4 (00:14→21:58)
[2021-09-07] MEDS: ALBUMIN 25% 25 GM/100 ML VIAL IV SCH (02:28)
[2021-09-07] MEDS ORDERED: NOREPINEPHRINE 4 MG/4 ML VIAL IV ONE ×3 (02:55→21:48)
[2021-09-07] MEDS: FUROSEMIDE 40 MG/4 ML VIAL IV SCH (03:00)
[2021-09-07] MEDS: ALBUTEROL/IPRATROPIUM 3 ML NEB RESP TX SCH ×6 (03:00→23:45)
[2021-09-07 04:34] LABS: ABG Base Excess -4.8 MMOL/L (-2.5-2.5); ABG HCO3 20.1 MMOL/L (20-26); ABG Oxygen Saturation 75.8 % (95-100); ABG PCO2 41.7 MM HG (35-48); ABG PH 7.312 (7.35-7.45); ABG PO2 48.7 MM HG (80-95); Allen Test Positive; Pt O2 Delivery Device Ventilator
[2021-09-07 04:59] LABS: Basophils % 0.1 % (0.0-0.8); Hematocrit 24.1 VOL% (42.0-52.0); Hemoglobin 7.4 GM/DL (14.0-18.0); Immature Granulocytes % 2.7 %; Immature Granulocytes Absolute 0.59 #; Lymphocytes % 0.1 % (21.2-54.2); Mean Corpuscular HGB Conc 30.7 GM/DL (32-36); Mean Corpuscular Volume 108.6 FL (87-102); Mean Platelet Volume 12.1 FL (9.6-12.0); Monocytes % 2.2 % (1.7-12.7); NRBC # 0.48 10*3/uL; Neutrophils % 94.9 % (38.7-73.9); Platelet Count 108 T/CUMM (130-400); Red Blood Count 2.22 MC/CUMM (3.8-5.5); Red Cell Distribution Width 17.1 % (9.3-17.3); White Blood Count 21.7 T/CUMM (4-12)
[2021-09-07 05:10] LABS: INR 1.4; PT Patient Result 15.1 SECS (10.5-12.0); Partial Thromboplastin Time 36.3 SECS (23.8-32.1)
[2021-09-07 05:18] LABS: Albumin 3.8 G/DL (3.4-5.0); Bilirubin,Total 1.2 MG/DL (0.20-1.00); Calcium 9.9 MG/DL (8.5-10.1); Osmolality,Calculated 347.8 MOS/KG (273-304); Potassium 5.1 MMOL/L (3.5-5.1); Total Protein 6.4 G/DL (6.4-8.2)
[2021-09-07 05:20] LABS: Band Neutrophils 1 % (0-10); Hypochromia 1+; Microcytosis 1+; Nucleated Red Blood Cells 1 (0-5); Segmented Neutrophils 98 % (50-85); Total Cells Counted 100
[2021-09-07] MEDS: DORNASE ALFA 2.5 MG/2.5 ML VIAL RESP TX SCH ×2 (07:27→20:10)
[2021-09-07 08:17] LABS: Allen Test Positive; Pt O2 Delivery Device Ventilator
[2021-09-07 08:18] LABS: ABG Base Excess -4.5 MMOL/L (-2.5-2.5); ABG HCO3 20.7 MMOL/L (20-26); ABG Oxygen Saturation 97.4 % (95-100); ABG PH 7.345 (7.35-7.45); ABG TCO2 19.6 MMOL/L (23-27)
[2021-09-07] MEDS: FAMOTIDINE 20 MG/2 ML VIAL IV SCH ×2 (08:44→21:00)
[2021-09-07] MEDS: FERROUS SULFATE 325 MG TABLET PO SCH (08:44)
[2021-09-07] MEDS: INSULIN GLARGINE 100 UNIT/ML SUBCUT SCH (08:44)
[2021-09-07] MEDS: FOLIC ACID 1 MG TABLET PO SCH (08:44)
[2021-09-07] MEDS: MONTELUKAST 10 MG TABLET PO SCH ×2 (08:45→23:17)
[2021-09-07] MEDS: GENTAMICIN 0.3% OPH OINT 3.5 GM TUBE RIGHT EYE SCH ×3 (08:45→23:17)
[2021-09-07] MEDS: SIMVASTATIN 10 MG TABLET PO SCH (08:45)
[2021-09-07] MEDS ORDERED: SODIUM CHLORIDE 0.9% 1,000 ML IV PRN (10:34)
[2021-09-07] MEDS ORDERED: DEXMEDETOMIDINE 200 MCG in SODIUM CHLORIDE 0.9% 48 ML IV PRN (10:48)
[2021-09-07] MEDS ORDERED: EPINEPHrine 1 MG/10 ML SYRINGE IV ONE (17:55)
[2021-09-07] MEDS ORDERED: SODIUM BICARBONATE 50 MEQ/50 ML SYRINGE IV ONE (17:57)
[2021-09-07] MEDS ORDERED: CALCIUM CHLORIDE 1,000 MG/10 ML SYRINGE IV ONE (18:02)
[2021-09-07] MEDS ORDERED: AMIODARONE 150 MG/3 ML VIAL IV ONE (18:03)
[2021-09-07] MEDS ORDERED: ATROPINE 1 MG/10 ML SYRINGE IV ONE (18:06)
[2021-09-07] MEDS ORDERED: EPINEPHrine 1 MG/ML VIAL IV ONE (18:09)
[2021-09-07 18:26] LABS: Basophils % 0.2 % (0.0-0.8); Hematocrit 26.9 VOL% (42.0-52.0); Hemoglobin 8.1 GM/DL (14.0-18.0); Lymphocytes # 0.1 10*3/uL (1.4-4.0); Lymphocytes % 0.3 % (21.2-54.2); Mean Corpuscular HGB Conc 30.1 GM/DL (32-36); Mean Platelet Volume 12.8 FL (9.6-12.0); Monocytes % 3.6 % (1.7-12.7); NRBC # 1.65 10*3/uL; Neutrophils % 91.9 % (38.7-73.9); Platelet Count 118 T/CUMM (130-400); Red Blood Count 2.36 MC/CUMM (3.8-5.5); Red Cell Distribution Width 17.8 % (9.3-17.3); White Blood Count 19.8 T/CUMM (4-12)
[2021-09-07 18:40] LABS: ABG Base Excess -12.3 MMOL/L (-2.5-2.5); ABG HCO3 14.1 MMOL/L (20-26); ABG Oxygen Saturation 37.7 % (95-100); ABG TCO2 19.3 MMOL/L (23-27); Allen Test Positive; Pt O2 Delivery Device Ventilator
[2021-09-07 18:41] LABS: ABG PH 7.026 (7.35-7.45)
[2021-09-07] MEDS: NOREPINEPHRINE 8 MG in SODIUM CHLORIDE 0.9% 242 ML IV PRN ×3 (18:45→21:59)
[2021-09-07 18:54] LABS: CKMB % 3.1 %
[2021-09-07 18:58] LABS: High Sensitive Troponin I* 385.2 ng/L (0-78)
[2021-09-07 19:16] LABS: Band Neutrophils 1 % (0-10); Metamyelocytes 1 %; Nucleated Red Blood Cells 7 (0-5); Segmented Neutrophils 94 % (50-85); Total Cells Counted 100
[2021-09-07 19:17] LABS: Anisocytosis 2+; Hypochromia 1+; Macrocytosis 2+; Platelet Estimate Normal
[2021-09-07 19:22] LABS: Howell-Jolly Bodies Few; Poikilocytosis Few; Polychromasia 1+; Schistocytes Few
[2021-09-07 19:46] LABS: Albumin 2.9 G/DL (3.4-5.0); Bilirubin,Total 1.2 MG/DL (0.20-1.00); Calcium 10.4 MG/DL (8.5-10.1); Osmolality,Calculated 350.8 MOS/KG (273-304); Total Protein 5.5 G/DL (6.4-8.2)
[2021-09-07 19:48] LABS: Potassium 7.2 MMOL/L (3.5-5.1)
[2021-09-07] MEDS ORDERED: INSULIN REGULAR 10 UNIT, CALCIUM GLUCONATE 1,000 MG in DEXTROSE 10% 250 ML IV ONE (20:04)
[2021-09-07] MEDS: SODIUM BICARB INJ 150 MEQ in STERILE WATER INJ 1,000 ML IV SCH (21:38)
[2021-09-07] MEDS: MIDAZOLAM 100 MG in SODIUM CHLORIDE 0.9% 80 ML IV PRN (23:05)
[2021-09-07 23:11] LABS: Basophils % 0.1 % (0.0-0.8); Hematocrit 30.4 VOL% (42.0-52.0); Hemoglobin 9.4 GM/DL (14.0-18.0); Immature Granulocytes % 5.4 %; Immature Granulocytes Absolute 1.18 #; Lymphocytes # 0.1 10*3/uL (1.4-4.0); Lymphocytes % 0.5 % (21.2-54.2); Mean Corpuscular HGB Conc 30.9 GM/DL (32-36); Mean Corpuscular Volume 109.4 FL (87-102); Mean Platelet Volume 12.3 FL (9.6-12.0); Monocytes % 2.3 % (1.7-12.7); NRBC # 1.95 10*3/uL; Neutrophils % 91.7 % (38.7-73.9); Platelet Count 139 T/CUMM (130-400); Red Blood Count 2.78 MC/CUMM (3.8-5.5); Red Cell Distribution Width 18.2 % (9.3-17.3); White Blood Count 21.8 T/CUMM (4-12)
[2021-09-07] MEDS: MINERAL OIL/PETROLATUM OPH OINT 3.5 GM TUBE BOTH EYES SCH (23:17)
[2021-09-07] MEDS: SODIUM ZIRCONIUM CYCLOSILICATE 10 GM PACK PO SCH (23:17)
[2021-09-07 23:43] LABS: Lymphocytes 1 % (20-55); Nucleated Red Blood Cells 11 (0-5); Platelet Estimate Adequate; Segmented Neutrophils 98 % (50-85); Total Cells Counted 100
[2021-09-07 23:44] LABS: Anisocytosis 1+; Macrocytosis 1+; Polychromasia 1+
[2021-09-07 23:45] LABS: Schistocytes 1+
[2021-09-07 23:48] LABS: ABG Base Excess -10.2 MMOL/L (-2.5-2.5); ABG HCO3 16.3 MMOL/L (20-26); ABG Oxygen Saturation 99.5 % (95-100); ABG PCO2 49.6 MM HG (35-48); ABG TCO2 17.2 MMOL/L (23-27)
[2021-09-07 23:50] LABS: ABG PH 7.174 (7.35-7.45)
[2021-09-08] LABS: Albumin 3.4 G/DL (3.4-5.0); Calcium 9.3 MG/DL (8.5-10.1); Osmolality,Calculated 349.8 MOS/KG (273-304); Potassium 5.6 MMOL/L (3.5-5.1); Total Protein 6.3 G/DL (6.4-8.2)
[2021-09-08] MEDS: methylPREDNISolone SOD SUC 40 MG/1 ML VIAL IV SCH ×3 (00:30→16:26)
[2021-09-08] MEDS: DEXTROSE 50% 25 GM/50 ML SYRINGE IV PRN ×2 (00:43→06:39)
[2021-09-08] MEDS ORDERED: DEXTROSE 50% 25 GM/50 ML SYRINGE IV ONE (00:51)
[2021-09-08] MEDS: INSULIN LISPRO 100 UNIT/ML SUBCUT SCH ×4 (01:21→17:49)
[2021-09-08] MEDS: ALBUTEROL/IPRATROPIUM 3 ML NEB RESP TX SCH ×5 (03:02→23:47)
[2021-09-08 04:07] LABS: Basophils % 0.2 % (0.0-0.8); Hematocrit 30.1 VOL% (42.0-52.0); Hemoglobin 9.3 GM/DL (14.0-18.0); Lymphocytes # 0.2 10*3/uL (1.4-4.0); Mean Corpuscular HGB Conc 30.9 GM/DL (32-36); Mean Corpuscular Volume 108.3 FL (87-102); Mean Platelet Volume 12.2 FL (9.6-12.0); Neutrophils % 92.8 % (38.7-73.9); Platelet Count 112 T/CUMM (130-400); Red Blood Count 2.78 MC/CUMM (3.8-5.5); White Blood Count 19.9 T/CUMM (4-12)
[2021-09-08 04:14] LABS: ABG Base Excess -7.2 MMOL/L (-2.5-2.5); ABG HCO3 18.5 MMOL/L (20-26); ABG Oxygen Saturation 98.8 % (95-100); ABG PCO2 39.1 MM HG (35-48); ABG TCO2 17.7 MMOL/L (23-27)
[2021-09-08 04:30] LABS: Albumin 3.4 G/DL (3.4-5.0); Bilirubin,Total 2.2 MG/DL (0.20-1.00); Calcium 9.5 MG/DL (8.5-10.1); Potassium 5.5 MMOL/L (3.5-5.1); Total Protein 5.9 G/DL (6.4-8.2)
[2021-09-08 04:31] LABS: Anisocytosis 1+; Band Neutrophils 6 % (0-10); Lymphocytes 1 % (20-55); Metamyelocytes 2 %; Microcytosis 1+; Ovalocytes Slight; Segmented Neutrophils 90 % (50-85); Total Cells Counted 100
[2021-09-08 04:32] LABS: Polychromasia Slight
[2021-09-08 05:48] LABS: ABG PCO2 73.8 MM HG (35-48); ABG PO2 32.8 MM HG (80-95)
[2021-09-08] MEDS: MIDAZOLAM 100 MG in SODIUM CHLORIDE 0.9% 80 ML IV PRN ×2 (06:35→21:27)
[2021-09-08] MEDS: DORNASE ALFA 2.5 MG/2.5 ML VIAL RESP TX SCH (07:25)
[2021-09-08] MEDS: SODIUM BICARB INJ 150 MEQ in STERILE WATER INJ 1,000 ML IV SCH ×2 (08:15→20:45)
[2021-09-08] MEDS: FERROUS SULFATE 325 MG TABLET PO SCH (10:51)
[2021-09-08] MEDS: FOLIC ACID 1 MG TABLET PO SCH (10:51)
[2021-09-08] MEDS: GENTAMICIN 0.3% OPH OINT 3.5 GM TUBE RIGHT EYE SCH ×3 (10:52→20:45)
[2021-09-08] MEDS: MONTELUKAST 10 MG TABLET PO SCH ×2 (10:52→20:45)
[2021-09-08] MEDS: SODIUM ZIRCONIUM CYCLOSILICATE 10 GM PACK PO SCH ×3 (10:52→20:45)
[2021-09-08] MEDS: FAMOTIDINE 20 MG/2 ML VIAL IV SCH ×2 (10:52→20:45)
[2021-09-08] MEDS: INSULIN GLARGINE 100 UNIT/ML SUBCUT SCH (10:52)
[2021-09-08] MEDS: SIMVASTATIN 10 MG TABLET PO SCH (10:53)
[2021-09-08] MEDS: CEFTAROLINE 200 MG in SODIUM CHLORIDE 0.9% 100 ML IV SCH ×2 (12:00→23:35)
[2021-09-08] MEDS ORDERED: fentaNYL 100 MCG/2 ML VIAL IV PRN (18:06)
[2021-09-08] MEDS: MINERAL OIL/PETROLATUM OPH OINT 3.5 GM TUBE BOTH EYES SCH (20:45)
[2021-09-09] MEDS: INSULIN LISPRO 100 UNIT/ML SUBCUT SCH ×4 (00:35→18:24)
[2021-09-09] MEDS: methylPREDNISolone SOD SUC 40 MG/1 ML VIAL IV SCH ×3 (00:40→15:33)
[2021-09-09] MEDS: ALBUTEROL/IPRATROPIUM 3 ML NEB RESP TX SCH ×7 (04:25→23:30)
[2021-09-09 04:32] LABS: Basophils % 0.1 % (0.0-0.8); Hematocrit 29.3 VOL% (42.0-52.0); Hemoglobin 9.6 GM/DL (14.0-18.0); Immature Granulocytes % 1.6 %; Immature Granulocytes Absolute 0.29 #; Lymphocytes % 0.2 % (21.2-54.2); Mean Corpuscular HGB Conc 32.8 GM/DL (32-36); Mean Corpuscular Volume 102.1 FL (87-102); Mean Platelet Volume 12.3 FL (9.6-12.0); NRBC # 0.96 10*3/uL; Neutrophils % 96.1 % (38.7-73.9); Platelet Count 92 T/CUMM (130-400); Red Blood Count 2.87 MC/CUMM (3.8-5.5); Red Cell Distribution Width 17.8 % (9.3-17.3); White Blood Count 18.6 T/CUMM (4-12)
[2021-09-09 04:53] LABS: Calcium 8.2 MG/DL (8.5-10.1); Potassium 5.5 MMOL/L (3.5-5.1); Total Protein 5.7 G/DL (6.4-8.2)
[2021-09-09 04:54] LABS: ABG Base Excess -4.2 MMOL/L (-2.5-2.5); ABG Oxygen Saturation 98.8 % (95-100); ABG PH 7.342 (7.35-7.45); ABG TCO2 19.4 MMOL/L (23-27)
[2021-09-09 04:56] LABS: Lymphocytes 2 % (20-55); Nucleated Red Blood Cells 6 (0-5); Platelet Estimate Decreased; Segmented Neutrophils 98 % (50-85); Total Cells Counted 100
[2021-09-09 04:57] LABS: Macrocytosis 1+
[2021-09-09] MEDS: NOREPINEPHRINE 8 MG in SODIUM CHLORIDE 0.9% 242 ML IV PRN (05:03)
[2021-09-09] MEDS: DEXTROSE 50% 25 GM/50 ML SYRINGE IV PRN ×3 (05:03→12:34)
[2021-09-09] MEDS: SODIUM BICARB INJ 150 MEQ in STERILE WATER INJ 1,000 ML IV SCH ×2 (06:37→15:46)
[2021-09-09] MEDS: DORNASE ALFA 2.5 MG/2.5 ML VIAL RESP TX SCH ×3 (07:17→19:25)
[2021-09-09] MEDS: SIMVASTATIN 10 MG TABLET PO SCH (08:57)
[2021-09-09] MEDS: SODIUM ZIRCONIUM CYCLOSILICATE 10 GM PACK PO SCH ×2 (08:57→15:20)
[2021-09-09] MEDS: MONTELUKAST 10 MG TABLET PO SCH ×2 (08:57→21:47)
[2021-09-09] MEDS: FOLIC ACID 1 MG TABLET PO SCH (08:57)
[2021-09-09] MEDS: FERROUS SULFATE 325 MG TABLET PO SCH (08:57)
[2021-09-09] MEDS: GENTAMICIN 0.3% OPH OINT 3.5 GM TUBE RIGHT EYE SCH ×3 (08:58→21:48)
[2021-09-09] MEDS: FAMOTIDINE 20 MG/2 ML VIAL IV SCH ×2 (08:59→22:00)
[2021-09-09] MEDS: INSULIN GLARGINE 100 UNIT/ML SUBCUT SCH (09:04)
[2021-09-09] MEDS: MIDAZOLAM 100 MG in SODIUM CHLORIDE 0.9% 80 ML IV PRN ×2 (09:07→22:23)
[2021-09-09] MEDS: CEFTAROLINE 200 MG in SODIUM CHLORIDE 0.9% 100 ML IV SCH ×2 (11:13→22:30)
[2021-09-09 12:02] LABS: M. Tuberculosis PCR Result Negative (Negative)
[2021-09-09] MEDS: ZINC OXIDE PASTE 113 GM TUBE TOP SCH ×2 (15:15→21:47)
[2021-09-09] MEDS: MINERAL OIL/PETROLATUM OPH OINT 3.5 GM TUBE BOTH EYES SCH (21:48)
[2021-09-10] MEDS: INSULIN LISPRO 100 UNIT/ML SUBCUT SCH ×4 (00:40→18:05)
[2021-09-10] MEDS: methylPREDNISolone SOD SUC 40 MG/1 ML VIAL IV SCH ×3 (00:42→16:22)
[2021-09-10 03:57] LABS: ABG Base Excess -4.5 MMOL/L (-2.5-2.5); ABG HCO3 20.7 MMOL/L (20-26); ABG Oxygen Saturation 98.6 % (95-100); ABG PCO2 45.1 MM HG (35-48); ABG PH 7.294 (7.35-7.45); ABG TCO2 20.4 MMOL/L (23-27); Allen Test Positive; Pt O2 Delivery Device Ventilator
[2021-09-10] MEDS: ALBUTEROL/IPRATROPIUM 3 ML NEB RESP TX SCH ×6 (04:00→22:27)
[2021-09-10 05:32] LABS: Basophils % 0.1 % (0.0-0.8); Hematocrit 28.6 VOL% (42.0-52.0); Hemoglobin 9.3 GM/DL (14.0-18.0); Immature Granulocytes % 1.8 %; Immature Granulocytes Absolute 0.28 #; Mean Corpuscular HGB Conc 32.5 GM/DL (32-36); Mean Corpuscular Volume 103.6 FL (87-102); Monocytes % 2.7 % (1.7-12.7); Neutrophils % 95.4 % (38.7-73.9); Platelet Count 86 T/CUMM (130-400); Red Blood Count 2.76 MC/CUMM (3.8-5.5); Red Cell Distribution Width 18.3 % (9.3-17.3); White Blood Count 15.6 T/CUMM (4-12)
[2021-09-10 05:51] LABS: Bilirubin,Total 1.4 MG/DL (0.20-1.00); Calcium 7.3 MG/DL (8.5-10.1); Osmolality,Calculated 354.3 MOS/KG (273-304); Potassium 4.5 MMOL/L (3.5-5.1); Total Protein 5.5 G/DL (6.4-8.2)
[2021-09-10 06:21] LABS: Band Neutrophils 6 % (0-10); Hypochromia Slight; Lymphocytes 2 % (20-55); Nucleated Red Blood Cells 7 (0-5); Platelet Estimate Decreased; Segmented Neutrophils 88 % (50-85); Total Cells Counted 100
[2021-09-10] MEDS: SODIUM BICARB INJ 150 MEQ in STERILE WATER INJ 1,000 ML IV SCH ×2 (07:08→15:00)
[2021-09-10] MEDS: DORNASE ALFA 2.5 MG/2.5 ML VIAL RESP TX SCH ×2 (07:15→19:40)
[2021-09-10] MEDS: INSULIN GLARGINE 100 UNIT/ML SUBCUT SCH (08:58)
[2021-09-10] MEDS: SIMVASTATIN 10 MG TABLET PO SCH (08:59)
[2021-09-10] MEDS: FAMOTIDINE 20 MG/2 ML VIAL IV SCH ×2 (08:59→21:01)
[2021-09-10] MEDS: MONTELUKAST 10 MG TABLET PO SCH ×2 (08:59→20:56)
[2021-09-10] MEDS: FOLIC ACID 1 MG TABLET PO SCH (08:59)
[2021-09-10] MEDS: FERROUS SULFATE 325 MG TABLET PO SCH (08:59)
[2021-09-10] MEDS: GENTAMICIN 0.3% OPH OINT 3.5 GM TUBE RIGHT EYE SCH ×3 (09:05→20:56)
[2021-09-10] MEDS: ZINC OXIDE PASTE 113 GM TUBE TOP SCH ×2 (09:05→20:57)
[2021-09-10] MEDS: CEFTAROLINE 200 MG in SODIUM CHLORIDE 0.9% 100 ML IV SCH ×2 (10:41→23:00)
[2021-09-10] MEDS: MIDAZOLAM 100 MG in SODIUM CHLORIDE 0.9% 80 ML IV PRN ×2 (13:37)
[2021-09-10] MEDS: MINERAL OIL/PETROLATUM OPH OINT 3.5 GM TUBE BOTH EYES SCH (20:56)
[2021-09-11] MEDS: methylPREDNISolone SOD SUC 40 MG/1 ML VIAL IV SCH ×3 (00:30→17:07)
[2021-09-11] MEDS: INSULIN LISPRO 100 UNIT/ML SUBCUT SCH ×4 (01:10→18:05)
[2021-09-11] MEDS: ALBUTEROL/IPRATROPIUM 3 ML NEB RESP TX SCH ×6 (03:10→23:17)
[2021-09-11 03:42] LABS: ABG Base Excess -2.6 MMOL/L (-2.5-2.5); ABG HCO3 22.2 MMOL/L (20-26); ABG Oxygen Saturation 99.7 % (95-100); ABG PCO2 44.6 MM HG (35-48); ABG PH 7.327 (7.35-7.45); ABG TCO2 21.7 MMOL/L (23-27)
[2021-09-11] MEDS: MIDAZOLAM 100 MG in SODIUM CHLORIDE 0.9% 80 ML IV PRN ×2 (04:34→22:27)
[2021-09-11 05:32] LABS: Basophils % 0.1 % (0.0-0.8); Hematocrit 27.2 VOL% (42.0-52.0); Hemoglobin 8.9 GM/DL (14.0-18.0); Immature Granulocytes % 0.8 %; Immature Granulocytes Absolute 0.11 #; Mean Corpuscular HGB Conc 32.7 GM/DL (32-36); Mean Platelet Volume 12.4 FL (9.6-12.0); Monocytes % 2.3 % (1.7-12.7); NRBC # 0.79 10*3/uL; Neutrophils % 96.8 % (38.7-73.9); Red Blood Count 2.59 MC/CUMM (3.8-5.5); Red Cell Distribution Width 18.2 % (9.3-17.3); White Blood Count 13.5 T/CUMM (4-12)
[2021-09-11 05:33] LABS: Platelet Count 70 T/CUMM (130-400)
[2021-09-11 05:35] LABS: Albumin 2.6 G/DL (3.4-5.0); Bilirubin,Total 1.1 MG/DL (0.20-1.00); Calcium 6.7 MG/DL (8.5-10.1); Osmolality,Calculated 352.5 MOS/KG (273-304); Potassium 4.6 MMOL/L (3.5-5.1); Total Protein 5.4 G/DL (6.4-8.2)
[2021-09-11 05:59] LABS: Hypochromia 1+; Microcytosis 1+; Nucleated Red Blood Cells 9 (0-5); Platelet Estimate Decreased; Segmented Neutrophils 98 % (50-85); Total Cells Counted 100
[2021-09-11] MEDS: DORNASE ALFA 2.5 MG/2.5 ML VIAL RESP TX SCH ×2 (07:20→19:23)
[2021-09-11] MEDS: FAMOTIDINE 20 MG/2 ML VIAL IV SCH ×2 (08:38→22:10)
[2021-09-11] MEDS: MONTELUKAST 10 MG TABLET PO SCH ×2 (08:39→22:06)
[2021-09-11] MEDS: FOLIC ACID 1 MG TABLET PO SCH (08:39)
[2021-09-11] MEDS: FERROUS SULFATE 325 MG TABLET PO SCH (08:39)
[2021-09-11] MEDS: SIMVASTATIN 10 MG TABLET PO SCH (08:39)
[2021-09-11] MEDS: INSULIN GLARGINE 100 UNIT/ML SUBCUT SCH (08:45)
[2021-09-11] MEDS: ZINC OXIDE PASTE 113 GM TUBE TOP SCH ×2 (08:45→22:06)
[2021-09-11] MEDS: GENTAMICIN 0.3% OPH OINT 3.5 GM TUBE RIGHT EYE SCH ×3 (08:45→22:06)
[2021-09-11] MEDS: CEFTAROLINE 200 MG in SODIUM CHLORIDE 0.9% 100 ML IV SCH ×2 (10:24→22:42)
[2021-09-11] MEDS: SODIUM BICARB INJ 150 MEQ in STERILE WATER INJ 1,000 ML IV SCH (14:32)
[2021-09-11 18:09] VITALS: BP 96/74
[2021-09-11] MEDS: MORPHINE 4 MG/1 ML VIAL IV PRN (20:00)
[2021-09-11] MEDS: MINERAL OIL/PETROLATUM OPH OINT 3.5 GM TUBE BOTH EYES SCH (22:06)
[2021-09-12] MEDS: INSULIN LISPRO 100 UNIT/ML SUBCUT SCH ×4 (00:21→19:26)
[2021-09-12] MEDS: methylPREDNISolone SOD SUC 40 MG/1 ML VIAL IV SCH ×3 (00:24→16:25)
[2021-09-12] MEDS: ALBUTEROL/IPRATROPIUM 3 ML NEB RESP TX SCH ×5 (02:27→18:40)
[2021-09-12 04:45] LABS: ABG Base Excess -2.4 MMOL/L (-2.5-2.5); ABG HCO3 22.4 MMOL/L (20-26); ABG Oxygen Saturation 96.4 % (95-100); ABG PH 7.342 (7.35-7.45); ABG PO2 92.1 MM HG (80-95); ABG TCO2 21.8 MMOL/L (23-27)
[2021-09-12 05:11] LABS: Basophils % 0.1 % (0.0-0.8); Eosinophils % 0.1 % (0.00-10.9); Hemoglobin 8.5 GM/DL (14.0-18.0); Immature Granulocytes % 0.9 %; Immature Granulocytes Absolute 0.08 #; Mean Corpuscular HGB Conc 32.7 GM/DL (32-36); Mean Platelet Volume 13.3 FL (9.6-12.0); Monocytes % 3.1 % (1.7-12.7); NRBC # 0.89 10*3/uL; Neutrophils % 95.8 % (38.7-73.9); Platelet Count 63 T/CUMM (130-400); Red Cell Distribution Width 18.6 % (9.3-17.3)
[2021-09-12 05:17] LABS: Albumin 2.4 G/DL (3.4-5.0); Bilirubin,Total 1.1 MG/DL (0.20-1.00); Calcium 6.2 MG/DL (8.5-10.1); Osmolality,Calculated 351.7 MOS/KG (273-304); Potassium 4.8 MMOL/L (3.5-5.1); Total Protein 5.3 G/DL (6.4-8.2)
[2021-09-12 05:22] LABS: Band Neutrophils 3 % (0-10); Hypochromia 1+; Microcytosis 1+; Nucleated Red Blood Cells 10 (0-5); Platelet Estimate Decreased; Segmented Neutrophils 95 % (50-85); Total Cells Counted 100
[2021-09-12] MEDS: DORNASE ALFA 2.5 MG/2.5 ML VIAL RESP TX SCH ×2 (06:48→18:40)
[2021-09-12] MEDS: FAMOTIDINE 20 MG/2 ML VIAL IV SCH ×2 (09:37→21:38)
[2021-09-12] MEDS: SIMVASTATIN 10 MG TABLET PO SCH (09:38)
[2021-09-12] MEDS: MONTELUKAST 10 MG TABLET PO SCH ×2 (09:38→21:34)
[2021-09-12] MEDS: FERROUS SULFATE 325 MG TABLET PO SCH (09:38)
[2021-09-12] MEDS: FOLIC ACID 1 MG TABLET PO SCH (09:38)
[2021-09-12] MEDS: CITRIC ACID/SODIUM CITRATE 30 ML UDCUP PO SCH ×2 (09:38→21:34)
[2021-09-12] MEDS: INSULIN GLARGINE 100 UNIT/ML SUBCUT SCH (09:39)
[2021-09-12] MEDS: ZINC OXIDE PASTE 113 GM TUBE TOP SCH ×2 (09:40→21:34)
[2021-09-12] MEDS: CEFTAROLINE 200 MG in SODIUM CHLORIDE 0.9% 100 ML IV SCH ×2 (12:44→23:35)
[2021-09-12] MEDS: MIDAZOLAM 100 MG in SODIUM CHLORIDE 0.9% 80 ML IV PRN (13:00)
[2021-09-12] MEDS: MINERAL OIL/PETROLATUM OPH OINT 3.5 GM TUBE BOTH EYES SCH (21:34)
[2021-09-13] MEDS: ALBUTEROL/IPRATROPIUM 3 ML NEB RESP TX SCH ×5 (00:25→16:55)
[2021-09-13] MEDS: MORPHINE 4 MG/1 ML VIAL IV PRN ×2 (00:42→05:15)
[2021-09-13] MEDS: INSULIN LISPRO 100 UNIT/ML SUBCUT SCH ×3 (00:42→14:41)
[2021-09-13] MEDS: methylPREDNISolone SOD SUC 40 MG/1 ML VIAL IV SCH ×3 (00:45→17:49)
[2021-09-13] MEDS: MIDAZOLAM 100 MG in SODIUM CHLORIDE 0.9% 80 ML IV PRN ×2 (01:09→11:00)
[2021-09-13 04:06] LABS: ABG HCO3 22.8 MMOL/L (20-26); ABG Oxygen Saturation 95.6 % (95-100); ABG PCO2 43.9 MM HG (35-48); ABG PH 7.333 (7.35-7.45); ABG TCO2 24.1 MMOL/L (23-27)
[2021-09-13 04:51] LABS: Basophils % 0.1 % (0.0-0.8); Hematocrit 26.5 VOL% (42.0-52.0); Hemoglobin 8.6 GM/DL (14.0-18.0); Immature Granulocytes % 0.7 %; Immature Granulocytes Absolute 0.06 #; Mean Corpuscular HGB Conc 32.5 GM/DL (32-36); Mean Corpuscular Volume 105.2 FL (87-102); Mean Platelet Volume 13.2 FL (9.6-12.0); Monocytes % 3.6 % (1.7-12.7); NRBC # 0.82 10*3/uL; Neutrophils % 95.6 % (38.7-73.9); Platelet Count 68 T/CUMM (130-400); Red Blood Count 2.52 MC/CUMM (3.8-5.5); Red Cell Distribution Width 19.3 % (9.3-17.3); White Blood Count 9.2 T/CUMM (4-12)
[2021-09-13 05:00] LABS: Calcium 6.3 MG/DL (8.5-10.1); Osmolality,Calculated 359.5 MOS/KG (273-304); Potassium 4.9 MMOL/L (3.5-5.1)
[2021-09-13 05:17] LABS: Band Neutrophils 4 % (0-10); Hypochromia 1+; Metamyelocytes 4 %; Microcytosis 1+; Nucleated Red Blood Cells 12 (0-5); Ovalocytes Slight; Segmented Neutrophils 86 % (50-85); Target Cells Slight; Total Cells Counted 100
[2021-09-13 05:18] LABS: Platelet Estimate Decreased
[2021-09-13] MEDS: DORNASE ALFA 2.5 MG/2.5 ML VIAL RESP TX SCH (07:17)
[2021-09-13] MEDS: MONTELUKAST 10 MG TABLET PO SCH (08:27)
[2021-09-13] MEDS: CITRIC ACID/SODIUM CITRATE 30 ML UDCUP PO SCH (08:27)
[2021-09-13] MEDS: SIMVASTATIN 10 MG TABLET PO SCH (08:27)
[2021-09-13] MEDS: FOLIC ACID 1 MG TABLET PO SCH (08:27)
[2021-09-13] MEDS: FERROUS SULFATE 325 MG TABLET PO SCH (08:27)
[2021-09-13] MEDS: INSULIN GLARGINE 100 UNIT/ML SUBCUT SCH (08:28)
[2021-09-13] MEDS: ZINC OXIDE PASTE 113 GM TUBE TOP SCH (08:29)
[2021-09-13] MEDS ORDERED: FAMOTIDINE 20 MG/2 ML VIAL IV SCH (09:00)
[2021-09-13] MEDS: CEFTAROLINE 200 MG in SODIUM CHLORIDE 0.9% 100 ML IV SCH (10:30)
[2021-09-13] MEDS ORDERED: MORPHINE 4 MG/1 ML VIAL IV PRN (16:07)
[2021-09-13] MEDS ORDERED: LORazepam 2 MG/1 ML VIAL IV PRN (16:10)
== END 2021-09-13 16:37 | disposition expired | DRG 5 ==
LOC: EDBD → EDUNIT# → N.ED 10:14 → SUATTDRO 15:44 → N.EDINP 15:44 → N.ICU 08-18 17:14
PROVIDERS: ADMIT Internal Medicine; ATTEND Internal Medicine